=== PATIENT | male | born 1960 | race Caucasian/White ===

== ENCOUNTER → 2023-06-18 15:09 | Outpatient (REF) | payer BC, SELFPAY | LOC: HWRAD 15:09 | PROVIDERS: ATTENDING PHYSICIAN Family Medicine | DX: M79.671 Pain in right foot (principal) | CPT/HCPCS: 73630 ==

== ENCOUNTER 2024-05-01 00:37 | Inpatient (IN) | payer BC, SELFPAY ==
[2024-04-30] VITALS (9 sets, daily range): BP systolic 99–179; BP diastolic 65–77; BMI 27.6
--- NOTE | 2024-04-30 20:03 | ED.GENMED ---
History of Present Illness
General
Chief Complaint: Blood Pressure Problem
Source: patient
Exam Limitations: none
Time Seen by Provider: 04/30/24 19:43
Nursing documentation reviewed up to this point in time: agreed with
History of Present Illness
History of Present Illness:
64-year-old male with past medical history of congenital bicuspid aortic valve with aortic stenosis status post TEVAR (04/16/2024), hypertension, hyperlipidemia, prostate cancer status post prostatectomy, type B aortic dissection status post left
carotid subclavian transposition and thoracic duct ligation (04/15/2024) and abdominal dissection stent (04/16/2024); he presents to the emergency room today for evaluation of hypertension and chest discomfort. Patient had admission at [place]
[facility] for above procedures and was discharged 04/23/2024 after reportedly uneventful postoperative course. He returned the next day to the emergency room there and was admitted for observation after he had chest pain and
abdominal pain and CTA showed possible re-entry tear in abdominal aortic dissection flap. He was observed seen by cardiology had negative troponins and was ultimately discharged. He has been on carvedilol 25 mg twice daily for blood pressure
control and he reports compliance. He says that over the past 48 hours his blood pressures have been quite high. Today it was elevated all the way above 220 systolic. Hypertension has been associated with chest pains and back pain/abdominal pain.
Symptoms have improved since arrival in the ER but he was referred to the ER to be reassessed. At time of my assessment he reports some mild chest pain but denies any abdominal pain. He denies any shortness of breath. He denies feeling dizzy. He
denies any other complaints.
Past History
Past History
ED Past Medical History: CAD, Cancer (Prostate cancer), Other (Sigmoid diverticulitis, sigmoid colon resection January 2019), Other (Bicuspid aortic valve) and Other (Obstructive sleep apnea, pancreatitis, DJD)
ED Past Surgical History: Bowel resection (Sigmoid colon resection January 2019), Cardiac (cadiac cath 06/19), Cholecystectomy and Other (Prostatectomy)
Social History
Tobacco: Smoker
Alcohol: Occasional
Drug: None
Personal:
Living: with family
Employment: Employed
Family History
Family History: Early CAD
Review of Systems
Review of Systems
All Other Systems: ROS reviewed and negative except as documented in HPI and ROS
Constitutional: Denies fever or chills
Respiratory: Denies cough or trouble breathing
Cardiac: Reports chest pain; Denies palpitations
ABD/GI: Reports abdominal pain; Denies nausea or vomiting
: Denies flank pain
Musculoskeletal: Reports back pain; Denies neck pain
Neurological: Denies dizzy or headache
Phy Exam
Physical Exam
Physical Exam:
General: Awake, alert, oriented x3; no acute distress
Head: Normocephalic, atraumatic
Eyes: Conjunctiva normal, EOMI
Throat: Airway intact, handling secretions
Neck: Trachea midline, no JVD
Lungs: Clear to auscultation bilaterally, no wheezing, rales, rhonchi
Heart: Regular rate and rhythm, systolic murmur
Abd: Soft, non distended, nontender
Neuro: No gross deficits
Skin: no rash
Extremities: No edema in extremities, equal pulses in all extremities�specifically bilateral radial, PT and DP pulses palpable and symmetric
Scores
Heart Failure Risk
Heart Failure Risk Score: Not Applicable
Heart Score for Chest Pain Patients
STEMI patient?: Not applicable
Withdrawal Assessment of Alcohol
Withdrawal Assessment Completed?: Not applicable
Course
Orders/Labs/Results
Orders:
Orders
04/30/24 19:18
ECG [Electrocardiogram (*1)] Urgent
Reason for Study: Chest Pain
EKG- Treatment ONCE
04/30/24 20:01
CT Chest/abd/pelvis Angio W/wo Urgent
Comment: TEVAR, L carotid/subclavian transposition
Reason For Exam: chest pain, HTN s/p surgery (see comments)
04/30/24 20:10
Type+Screen Urgent
Complete Blood Count/With Diff Urgent
Comprehensive Metabolic Panel Urgent
PTT Urgent
Prothrombin Time Urgent
Troponin I Urgent
04/30/24 20:32
Nicardipine 40 mg/200 ml [Cardene] 40 mg in 200 ml IV NOW
Initial dose in mg/hr, then titrate:: 5
Titrate to keep:: SBP 120 - 140 mmHg
Titrate by mg/hr:: 2.5 mg/hr
Frequency of titrations (minutes):: 5-15 minutes
Maximum dose in mg/hr:: 15
Begin to taper infusion when:: Remained at goal for 2hrs
Taper by mg/hr:: 2.5 mg/hr
Frequency of taper (minutes) if patient maintains goal:: 15-30 minutes
Taper to off?: Yes
If infusion off & no longer maintaining goal:: Contact Provider
Abnormal Lab Results
04/30/24
20:10
RBC 2.72 L 10^6/uL
(4.70-6.10)
Hgb 8.2 L g/dL
(13.0-18.0)
Hct 25.9 L %
(39.0-52.0)
MCV 95.2 H fL
(80.0-94.0)
MCHC 31.7 L g/dL
(33.0-37.0)
Abs Immat Gran (auto) 0.1 H 10^3/uL
(0-0.05)
Absolute Neuts (auto) 7.0 H 10^3/uL
(1.4-6.5)
Absolute Monos (auto) 0.7 H 10^3/uL
(0.1-0.6)
Immature Gran % 0.6 H %
(0-0.5)
Neutrophils % 77.8 H %
(42.2-75.2)
Lymphocytes % 13.1 L %
(20.5-51.1)
PT 15.9 H Sec
(11.4-14.6)
APTT 38.3 H Sec
(23.4-35.0)
Sodium 132 L mmol/L
(135-145)
Glucose 104 H mg/dl
(70-99)
ALT 55 H U/L
(0-50)
Total Protein 5.9 L g/dl
(6.3-8.2)
Albumin 3.1 L g/dl
(3.5-5.0)
04/30/24 20:10
04/30/24 20:10
Vital Signs
Initial and Last Documented VS:
Initial Vital Signs
Temp Pulse Resp BP Pulse Ox
37.1 C 67 20 138/65 99
04/30/24 19:13 04/30/24 19:13 04/30/24 19:13 04/30/24 19:13 04/30/24 19:13
Last Documented Vital Signs
Temp Pulse Resp BP Pulse Ox
37.1 C 75 24 164/73 97
04/30/24 19:13 04/30/24 21:30 04/30/24 21:30 04/30/24 21:30 04/30/24 21:30
MDM/Problems Addressed
Differential Diagnosis Includes:
Chest pain and hypertension: Could be related to reentry tear/worsening dissection, acute AL, pneumothorax, musculoskeletal/postoperative pain
MDM/Problems Addressed:
64-year-old male with recent surgical history as described above presents to the ER for poorly controlled blood pressure and associated chest pains/abdominal and back pain. Symptoms have improved as has his blood pressure�he reports blood pressure
220 at home today's blood pressure is 138/65. Rest of vitals are also normal. Physical exam as above. Will place an IV check labs including a CBC and a CMP, coags, type and screen, troponin. Check stat EKG. Will check CTA of the
chest/abdomen/pelvis. Reassess after the above.
Patient's blood pressure up again now 174/74. Heart rate 60s. I think at this point he should started on a Cardene drip to regulate blood pressure in the short-term and I think he should be admitted pending CT to better manage his blood pressure
given his recent surgical history as he says regularly has been over 200 for the past few days despite full dose of Coreg.
Blood pressure improving now 160s over 70s. CTA discussed with radiology�at least based on outpatient read from [place] appears stable today although no actual images to review for comparison. He is chest pain and back pain free on clinical
reassessment. Will plan to admit for blood pressure management as he says he was instructed to maintain strict blood pressure less than 140 postop. Discussed case with hospitalist for admission.
Chronic conditions affecting care:
Hypertension, aortic dissection
*Radiology
Radiology exam reviewed: radiology read reviewed
*Pulse Oximetry
Patient hypoxic: no
*EKG
Interpreted by ED Provider?: Yes
Heart Rate: 66
Rate: normal
Rhythm: sinus
[place]: left axis deviation
QRS Pattern: left vent hypertrophy
Ischemia: no ischemia
*Critical Care Note
Total Time (30-74mins, 75-104mins- exclusive of procedures): Not Applicable
Data Reviewed
Review of Other/Old Records Reveals: Labs and Records (Reviewed external discharge summary from recent visit to [facility])
Source: patient, records and physician (Discussed with sexual health physician who referred to the ER)
ED Attending Note
-
Portions of this chart may have been created with voice recognition software.� Occasional wrong word or��sound alike� substitutions may have occurred due to the inherent limitations of voice recognition software.
Discharge Plan
Departure
Patient Disposition: Admit
Date of Disposition: 04/30/24
Time of Disposition: 22:38
Admit to doctor: [place]
Presentation/result/management discussed w/ accepting MD/DO: Hospitalist
Discharge Problem:
Hypertensive urgency, Chest pain
Prescriptions:
No Action
calcium polycarbophil [Fiber (calcium polycarbophil)] 625 MG tablet
625 mg PO DAILYPRN PRN (Reason: constipation)
alprostadil [Edex] 40 MCG/VIAL recon soln
40 mcg IC PRN PRN (Reason: erectile dysfunction)
valacyclovir 500 MG tablet
500 mg PO DAILY
mupirocin 1 APPLIC ointment
1 applic intranasal BID Qty: 1 0RF
Patient Comments:
pt did not do this at all
sennosides [senna] 1 TABLET tablet
2 tab PO BID 0RF
lidocaine [Aspercreme (lidocaine)] 1 PATCH adhesive patch,medicated
2 patch topical DAILY Qty: 14 0RF
Rx Instructions:
Over the counter. Remove nightly.
Apply to sides of left thigh. Do not place over incision.
aspirin 325 MG tablet
325 mg PO DAILY Qty: 28 0RF
Rx Instructions:
Take daily x4 weeks for blood clot prevention; then resume Aspirin 81 mg daily.
magnesium hydroxide 30 ML suspension
30 ml PO DAILY 0RF
docusate sodium 100 MG capsule
100 mg PO BID 0RF
gabapentin 100 MG capsule
200 mg PO TID Qty: 45 0RF
oxycodone 5 MG tablet
5 mg PO Q4HPRN PRN (Reason: moderate-severe pain) Qty: 30 0RF
Rx Instructions:
1 tab moderate pain or 2 if pain severe
Dx total joint replacement
ongoing therapy
acetaminophen [Pain Relief (acetaminophen)] 325 MG tablet
650 mg PO Q4HWA Qty: 30 0RF
Rx Instructions:
Do not exceed >4000 mg daily.
meloxicam 15 MG tablet
15 mg PO DAILY Qty: 30 0RF
Rx Instructions:
Take with food.
Do not take within 2 hours of Aspirin.
Referrals:
Gerry Lincoln MD [Family Provider] -
Interventions
Interventions:
*General Assessment Last Done: 04/30/24 19:13
ED- Cardiac Assessment Last Done: 04/30/24 20:18
ED- Neurological Assessment Last Done: 04/30/24 20:18
ED- Pulmonary Assessment Last Done: 04/30/24 20:18
Discharge Date and Time
Print Language: FRENCH
[2024-04-30 20:19] LABS: % Basophils 0.2 % (0-2); % Eosinophils 0.7 % (0-6); % Immature Granulocytes 0.6 % (0-0.5); % Lymphocytes 13.1 % (20.5-51.1); % Monocytes 7.6 % (1.7-9.3); % Neutrophils 77.8 % (42.2-75.2); Absolute Eosinophils 0.1 10^3/uL (0-0.7); Absolute Immature Granulocytes 0.1 10^3/uL (0-0.05); Absolute Lymphocytes 1.2 10^3/uL (1.2-3.4); Absolute Monocytes 0.7 10^3/uL (0.1-0.6); Hematocrit 25.9 % (39.0-52.0); Hemoglobin 8.2 g/dL (13.0-18.0); Mean Corp Hgb Conc. 31.7 g/dL (33.0-37.0); Mean Corpuscular Hgb 30.1 pg (27.0-31.0); Mean Corpuscular Volume 95.2 fL (80.0-94.0); Mean Platelet Volume 9.3 fL (7.4-10.4); Nucleated Red Blood Cells % 0 % (-); Platelet Count 224 10^3/uL (130-400); Red Blood Cell Count 2.72 10^6/uL (4.70-6.10); Red Cell Dist. Width 14.2 % (11.5-14.5)
[2024-04-30 20:32] LABS: INR 1.24; PT 15.9 Sec (11.4-14.6)
[2024-04-30 20:33] LABS: APTT 38.3 Sec (23.4-35.0)
[2024-04-30] MEDS: CARDENE 200 IV (20:38)
[2024-04-30 20:49] LABS: Troponin I 0.013 ng/ml
[2024-04-30 20:50] LABS: ALT (SGPT) 55 U/L (0-50); AST (SGOT) 32 U/L (17-59); Albumin 3.1 g/dl (3.5-5.0); Alkaline Phosphatase 82 U/L (38-126); Blood Urea Nitrogen 12 mg/dl (9-20); Calcium 8.6 mg/dl (8.4-10.2); Carbon Dioxide 23 mmol/L (22-30); Chloride 102 mmol/L (98-107); Estimated Creatinine Clearance 86 ml/min; Glucose 104 mg/dl (70-99); Sodium 132 mmol/L (135-145); Total Bilirubin 0.6 mg/dl (0.2-1.3); Total Protein 5.9 g/dl (6.3-8.2); eGFR > 60.00
[2024-05-01] VITALS (44 sets, daily range): BP systolic 110–175; BP diastolic 37–70
--- NOTE | 2024-05-01 00:07 | HPS.HSE ---
Family Physician
-
Family Physician: Gerry Lincoln
Chief Complaint
-
Elevated blood pressure
History of Present Illness
This is a 64-year-old male with past medical history of CAD status post stenting, peripheral vascular disease status post stenting, history of prostate cancer, presented to the emergency department with elevated blood pressure that was high as 200
systolic at home.
Patient reports that is status post surgery at [facility] for a type B dissection. Discharged on Coreg 25 mg twice daily. Patient reported that prior to that he was not on any antihypertensives. He is unable to tell me without he has been on
antihypertensives in the more distant past. He reported compliance with the Coreg. He checks his blood pressure regularly and reports that at night 8/high as 185. However today it went up to around 200 and he has been instructed to come to the
emergency department if that happens. He is to get blood pressure is less than 140 systolic.
In the emergency department he was initially hypertensive to 170 systolic. He was started on nicardipine drip.
His blood pressure was 1 147/90 with a pulse of 80, afebrile and satting 99% on room air. Troponin was 0.013. ECG showed normal sinus rhythm at a rate of 66. CBC shows hemoglobin of 8.2 and otherwise normal. Electrolytes were unremarkable with a
creatinine of 1.0. Potassium was 4.0.
CT dissection is negative for acute changes: Endovascular stent (TEVAR) seen extending from the aortic arch into the abdominal aorta. Homogeneous contrast opacification predominantly left-sided beyond the confines of the stent in the distal
thoracic region extending into the abdominal aorta suggesting the possibility of contrast opacification of the false lumen possibly the result of a re-entry tear of prior dissection. Unfortunately, no recent CTA studies outside of this facility are
available for comparison/assessment of any possible interval change.
Dissection of the distal abdominal aorta extending into the proximal left common iliac artery and throughout the right common iliac artery with aneurysmal dilatation of the right common iliac artery noted, similar in size to remote prior CT,
however, dissection was not seen on prior CT from 2019. Age of this dissection is unknown.
Bubble of air in the urinary bladder presumably the result of recent Anthony catheter/instrumentation. In the absence of such, fistula would be suspected.
Tiny left pleural effusion with left lower lobe subsegmental atelectasis.
Additional nonurgent findings, as detailed above.
Medical History
Past Medical History
Past Medical History: Reports Cancer (prostate ca) and Valvular Disease (bicuspid aortic valve)
Additional Past Medical History:
basilic vein thrombosis
Past Surgical History: Reports Bowel Resection, Cholecystectomy and Orthopedic (left hip replacement)
Social History
Tobacco: Former Smoker
Alcohol: Occasional
Drug: None
Personal: Single
Living: Alone
Employment: Employed
Family History
Family History: Not pertinent
Allergies / Home Medications
Allergies reflects when Allergies were last updated in [facility].
Home Medications with original date entered in [facility]
Allergy/Medication List:
Allergies
Allergy/AdvReac Type Severity Reaction Status Date / Time
morphine AdvReac Nausea / Verified 04/30/24 19:13
Vomiting
Home Medications
aspirin 81 mg tablet,delayed release 81 mg PO DAILY 04/30/24
atorvastatin 80 mg tablet 80 mg PO HS 04/30/24
carvedilol 25 mg tablet 25 mg PO BID 04/30/24
oxycodone 5 mg tablet 5 mg PO DAILYPRN PRN moderate-severe pain 04/30/24
Review of Systems
-
History Source: Patient
Constitutional: Reports No Symptoms
EENT: Reports No Symptoms
Respiratory: Reports No Symptoms
Cardiac: Reports Chest Pain
Abdomen/GI: Reports No Symptoms
: Reports No Symptoms
Musculoskeletal: Reports No Symptoms
Skin: Reports No Symptoms
Neurological: Reports No Symptoms
Endocrine: Reports No Symptoms
Hematologic/Lymphatic: Reports No Symptoms
Psych: Reports No Symptoms
Physical Exam
Vital Signs
Vital Signs
Temp Pulse Resp BP Pulse Ox
98.7 F 82 27 147/67 95
04/30/24 19:13 05/01/24 00:00 05/01/24 00:00 05/01/24 00:00 05/01/24 00:00
Physical Exam
General: Well Developed, Well Nourished, No Apparent Distress and Comfortable
HEENT: NormoCephalic, Anicteric, Moist mucous membranes and Atraumatic
Respiratory: Clear
Cardiac: S1/S2 and Regular Rhythm
Breast: Deferred by me
GI: Soft, Non Tender, Non Distended and Normal Bowel Sounds
Rectal: Deferred by Provider
Genito-urinary: Deferred by me
Musculoskeletal: No Clubbing and No Cyanosis
Skin: Warm
Neuro: AO x 3 and Nonfocal/grossly intact
Hematologic/Lymphatic: No Lymphadenopathy
Psych: Calm
Laboratory Results
-
04/30/24 20:10
04/30/24 20:10
Laboratory Results
PT 15.9 Sec (11.4-14.6) H 04/30/24 20:10
INR 1.24 04/30/24 20:10
APTT 38.3 Sec (23.4-35.0) H 04/30/24 20:10
Total Bilirubin 0.6 mg/dl (0.2-1.3) 04/30/24 20:10
AST 32 U/L (17-59) 04/30/24 20:10
ALT 55 U/L (0-50) H 04/30/24 20:10
Alkaline Phosphatase 82 U/L (38-126) 04/30/24 20:10
Troponin I 0.013 ng/ml 04/30/24 20:10
Data Reviewed
-
CT Scan: Report Reviewed by me
Medical Tests (Nuc Med, Echo, EKG etc): Image Personally Visualized and interpreted
Lab Data: Labs Reviewed by me
Old Records: Reviewed
Impression/Plan
-
IMPRESSION:
64 y.o recently status post surgery at [place] for type B aortic dissection and discharged on coreg with target SBP < 140 coming to ED with SBP > 180 and transient intermittent CP. Compliant with coreg 25 bid. ECG non-ischemic and otherwise
asymptomatic. Trop negative. CT scan shows post surgical changes without acute abnormalities. Started on nicardipine gtt.
PLAN:
1. Uncontrolled HTN
- admit to ICU
- continue nicardipine to target SBP < 140
- continue coreg 25 bid
- start valsartan 40mg
- consider nifedipine addition
- monitor K
- cardiology consultation
2. Dissection
- bp control as above
- continue aspirin and statin
3. SHIRLENE
- CPAP HS
DVT PPX - SCDs for now
Code status - full code
[2024-05-01] MEDS: DIOVAN 40 MG PO ×2 (00:48→09:59)
[2024-05-01] MEDS: CARDENE 200 IV ×4 (00:55→12:11)
--- NOTE | 2024-05-01 01:30 | RESPNOTE ---
pt states he will be fine without cpap for 1 night. Someone will bring his machine in for future use
[2024-05-01] MEDS: NITROSTAT (SUBLINGUAL) 0.4 MG SL (02:46)
[2024-05-01] MEDS: DILAUDID 0.5 MG IV ×2 (03:14→11:05)
[2024-05-01 03:18] LABS: Troponin I < 0.012 ng/ml
[2024-05-01 06:30] LABS: Troponin I 0.012 ng/ml
[2024-05-01 06:44] LABS: Blood Urea Nitrogen 10 mg/dl (9-20); Calcium 8.6 mg/dl (8.4-10.2); Carbon Dioxide 24 mmol/L (22-30); Chloride 103 mmol/L (98-107); Estimated Creatinine Clearance 86 ml/min; Glucose 111 mg/dl (70-99); Potassium 3.8 mmol/L (3.5-5.1); Sodium 136 mmol/L (135-145); eGFR > 60.00
--- NOTE | 2024-05-01 06:54 | CON.CAR ---
Consultation
Consultation Request
Date/Time Consultation Requested: April 30, 2024
Date/Time Consultation Performed: May 01, 2024
Requesting Provider: Hospitalist
Performing Provider: Cookie
Reason for Consultation: Chest pain
Medical History
-
Chief Complaint: Chest pain, hypertensive urgency
History of Present Illness:
Kirby Noel is a pleasant gentleman 64 years old who we have not seen since October 2022 in the office. He has been getting his recent cardiology and surgical care at [facility] after going [facility] the [facility] emergency room with chest and abdominal symptoms and was diagnosed with a type B aortic dissection. Importantly he has a history of bicuspid aortic valve. I do not have his complete records from [facility] but I
do have a discharge summary from April 28, 2024. He has had a recent complex medical history including tobacco use, congenital bicuspid aortic valve, hypertension, aortic stenosis, chronic pancreatitis, diverticulosis, DVT, HLD, prostate cancer
status post prostatectomy and most recently a type B aortic dissection with initial left carotid to subclavian transposition and thoracic duct ligation on April 15, 2024 at [facility] and TEVAR with abdominal dissection
stent on April 16. He was discharged uneventfully on April 23 from [facility] and then returned the following day with complaints of chest pain and shortness of breath. He had a creatinine of 1.7, troponin of 29 and
hemoglobin of 8 with a CTA obtained demonstrating postsurgical changes from the TEVAR and bypass and similar appearance of the distal aspect of the dissection flap extending into the iliac arteries. He had a similar-appearing fusiform aneurysm of
the right common iliac artery. He had contrast opacification of the false lumen likely secondary to reentry tear in the infrarenal abdominal aorta dissection flap. Cardiology was consulted while the patient was hospitalized and felt the pain to be
not likely cardiac in origin. There appears to be notes that he has follow-up arranged with cardiology at [facility]. He then called our cardiology on-call service last night and had complaints of chest pain with a blood pressure of 220/120. I
told him to immediately come to the emergency room which she did and he was placed on a Cardene drip. Current blood pressure is 130/60 and he is pain-free currently. He is on Coreg 25 mg twice daily and nifedipine 3 times daily plus spironolactone
as outpatient medications and current blood pressure medications in the emergency room are the Cardene drip, Coreg, and valsartan was added. He has a holosystolic murmur presumably from his bicuspid aortic valve. His creatinine has normalized.
Hemoglobin is noted to be 8.
Past Medical History
Past Surgical History: Other (Recent major vascular surgery)
Social History
Tobacco: Non-Smoker
Alcohol: None
Drug: None
Personal:
Living: With Family
Employment: Employed
Family History
Family History: Reviewed & Not Pertinent
Allergies / Home Medications
Allergy/AdvReac Type Severity Reaction Status Date / Time
morphine AdvReac Nausea / Verified 04/30/24 19:13
Vomiting
�Medication �Instructions �Recorded �Confirmed �Type
aspirin 81 mg tablet,delayed 81 mg PO DAILY 04/30/24 04/30/24 History
release
atorvastatin 80 mg tablet 80 mg PO HS 04/30/24 04/30/24 History
carvedilol 25 mg tablet 25 mg PO BID 04/30/24 04/30/24 History
oxycodone 5 mg tablet 5 mg PO DAILYPRN PRN 04/30/24 04/30/24 History
moderate-severe pain
Review of Systems
-
All other systems: Negative unless noted
Physical Exam
Vital Signs
Temp Pulse Resp BP Pulse Ox
98.7 F 65 4 140/65 93
04/30/24 19:13 05/01/24 06:30 05/01/24 06:45 05/01/24 06:45 05/01/24 06:45
Lab Results
04/30/24 20:10
05/01/24 05:58
Troponin I 0.012 ng/ml 05/01/24 05:58
Physical Exam
General: Well Developed and Well Nourished
HEENT: Normocephalic
Respiratory: Clear
Cardiac: S1/S2, Regular Rhythm and Murmur (2 out of 6 holosystolic murmur with mildly blunted S2)
Breast: Deferred by me
GI: Soft, Non Tender and Non Distended
Rectal: Deferred by Provider
Genito-urinary: Other (Deferred)
Musculoskeletal: No Clubbing and No Cyanosis
Skin: Warm, Dry and Rash
Neuro: Awake, Alert and Oriented
Hematologic/Lymphatic: No Lymphadenopathy
Psych: Calm
Impression / Plan
-
Impression:
Type B aortic dissection
Status post left carotid to subclavian transposition April 15 at [facility]
TEVAR and abdominal dissection stent April 16 at [facility]
Readmission for chest pain and positive troponin
Hypotension post surgery
Acute renal failure post surgery resolved
Ongoing iron deficiency anemia from blood loss
Hypertensive urgency reason for admission
Chest pain
Bicuspid aortic valve
Mixed hyperlipidemia
Aortic root 4.3 cm at 2022 echo
Recommendations:
He has received a bulk of his daytime care at [facility] and we have not seen him in the office in 2022
Agree with IV Cardene to maintain blood pressure ideally less than 120/80 given his recent dissection
At home he had hypertensive urgency with markedly elevated blood pressures and chest pain
Not unreasonable to check daily troponins x 2
Will repeat echocardiogram to assess his aortic root and bicuspid aortic valve
Currently appears relatively comfortable as we transition to increased p.o. medications
Agree with valsartan
Discussion with family who they would like to follow-up with in the long-term as the discharge summary indicates follow-up with cardiology at [facility]
Can consider vascular surgery opinion if he has ongoing abdominal or chest symptoms otherwise probably reasonable to have him follow-up with [facility] vascular surgery given the extent of their care over the month of April and as recently as 2 days
ago. The patient's told me that they are trying to reach out and connect with the [facility] team
We will follow with you
Data Reviewed
-
EKG: Tracing Personally Visualized and interpreted
Labs: Labs Reviewed by me
Old Records: Requested and Reviewed
--- NOTE | 2024-05-01 08:20 | CON.INTV ---
Consultation
Consultation Request
Date/Time Consultation Requested: 05/01/202449
Date/Time Consultation Performed: 05/01/2024809
Requesting Provider: Dr. Schafer
Performing Provider: Dr. Morris
Reason for Consultation: HTN crisis
Medical History
-
Chief Complaint: Chest/back discomfort with recent procedure done on aorta
History of Present Illness:
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
prostate cancer s/p surgery + XRT, diverticulosis, external hemorrhoids, chronic constipation and history of chest pain who presents with chest pain + back pain. He recently had surgery done for a type B dissection at [facility]. He was put on the
Coreg 25 mg BID upon discharge and was just discharged home 1 day prior to arrival. He says he has been compliant with the Coreg. At home he checks his BP and sometimes his SBP is as high as the 180s. He says prior to arrival his SBP went to
around 200 and that is why he came to the ER. In the ER his BP was initially 138/65, with heart rate 67, breathing at 20 breaths/min, and saturating 99% on room air. He was afebrile to 98.7 �F. Labs showed Hb 8.2, sodium 132, and troponin
negative at 0.013. A CTA chest, abdomen, pelvis with/without contrast was done showing a TEVAR from the aortic arch into the abdominal aorta showing possible contrast opacification of a false lumen which could be the result of a reentry tear of a
prior dissection. Also dissection of the distal abdominal aorta extending into the proximal left common iliac artery and throughout the right common iliac artery with aneurysmal dilatation of the right common iliac artery noted, similar in size to
prior CT in 2019, as per radiologist. Also a small left pleural effusion with left lower lobe subsegmental atelectasis. Patient's BP increased into the 170s and was started on Cardene drip. He was admitted to the ICU for further care and
Diabetes Manager services consulted for additional management/recommendations.
When I saw the patient, he was resting in bed in no acute distress. Currently on room air breathing comfortably. Denies chest pain or shortness of breath. Also denies MELVIN, nausea, abdominal pain, fevers or chills.
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
surgery + XRT (2009), left proximal humerus fracture due to fall (07/2009), external hemorrhoids, diverticulosis, history of acute pancreatitis (01/2009), chronic constipation, history of chest pain, keratoacanthoma
PSHx: Laparoscopic cholecystectomy with cholangiogram, repair of periumbilical incisional hernia with mesh, robotic sigmoid colectomy with intracorporeal anastomosis, left hip replacement
Past Medical History
Past Medical History: Other (Above as per HPI)
Past Surgical History: Other (Above as per HPI)
Social History
Tobacco: Former Smoker
Alcohol: Occasional
Drug: None
Family History
Family History: CAD (Father: CABG x 4), Cancer (Maternal uncle: Bladder + lung cancer), Diabetes (Father) and Other (Mother: Gallbladder disease + colonic polyps; Brother: Colonic polyps)
Allergies / Home Medications
Allergies
Allergy/AdvReac Type Severity Reaction Status Date / Time
morphine AdvReac Nausea / Verified 04/30/24 19:13
Vomiting
Home Medications
�Medication �Instructions �Recorded �Confirmed �Last Taken �Type
aspirin 81 mg tablet,delayed 81 mg PO DAILY 04/30/24 04/30/24 Unknown History
release
atorvastatin 80 mg tablet 80 mg PO HS 04/30/24 04/30/24 Unknown History
carvedilol 25 mg tablet 25 mg PO BID 04/30/24 04/30/24 Unknown History
oxycodone 5 mg tablet 5 mg PO DAILYPRN PRN 04/30/24 04/30/24 Unknown History
moderate-severe pain
Review of Systems
-
History Source: Patient
All other systems: Negative unless noted
Vitals / Labs / Diagnostic Testing
Vital Signs
Temp Pulse Resp BP Pulse Ox
98.7 F 65 4 140/65 93
04/30/24 19:13 05/01/24 06:30 05/01/24 06:45 05/01/24 06:45 05/01/24 06:45
Lab Data
04/30/24 20:10
05/01/24 05:58
Laboratory Results
04/30/24
20:10
PT 15.9 H
INR 1.24
APTT 38.3 H
Diagnostic Testing:
Physical Exam
-
HEENT: Normocephalic and Anicteric
Cardiovascular: S1/S2, Murmur (MICHELE heard diffusely across precordium, grade IV/) and Peripheral Edema (negative)
Respiratory: Clear, Wheeze (negative), Rales (negative), Rhonchi (negative) and Non-Labored Respirations
GI: Soft, Non Distended, Non Tender and Normal Bowel Sounds
Neurology: Awake, Alert and Tremors (negative)
Skin: Warm and Dry
General: Respiratory Distress (negative), Comfortable, Fever (negative) and Chills (negative)
Assessment
-
Assessment: 64-year-old male former tobacco smoker with a past medical history of congenital aortic valve insufficiency, history of bradycardia, aortic stenosis, bicuspid aortic valve, hyperlipidemia, incomplete occlusive vein thrombosis of basilic
vein, prostate cancer s/p surgery + XRT, diverticulosis, external hemorrhoids, chronic constipation and history of chest pain who presents with chest pain + back pain. He recently had surgery done for a type B dissection at [facility]. He was put
on the Coreg 25 mg BID upon discharge and was just discharged home 1 day prior to arrival. He says he has been compliant with the Coreg. At home he checks his BP and sometimes his SBP is as high as the 180s. He says prior to arrival his SBP went
to around 200 and that is why he came to the ER. In the ER his BP was initially 138/65, with heart rate 67, breathing at 20 breaths/min, and saturating 99% on room air. He was afebrile to 98.7 �F. Labs showed Hb 8.2, sodium 132, and troponin
negative at 0.013. A CTA chest, abdomen, pelvis with/without contrast was done showing a TEVAR from the aortic arch into the abdominal aorta showing possible contrast opacification of a false lumen which could be the result of a reentry tear of a
prior dissection. Also dissection of the distal abdominal aorta extending into the proximal left common iliac artery and throughout the right common iliac artery with aneurysmal dilatation of the right common iliac artery noted, similar in size to
prior CT in 2019, as per radiologist. Also a small left pleural effusion with left lower lobe subsegmental atelectasis. Patient's BP increased into the 170s and was started on Cardene drip. He was admitted to the ICU for further care and
Diabetes Manager services consulted for additional management/recommendations.
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
prostate cancer s/p surgery + XRT (2009), left proximal humerus fracture due to fall (07/2009), external hemorrhoids, diverticulosis, history of acute pancreatitis (01/2009), chronic constipation, history of chest pain, keratoacanthoma
Impression:
#Hypertensive crisis requiring Cardene drip
#Anemia
#Hyponatremia
#Mild transaminitis with ALT 55
#Type B aortic dissection s/p EVAR at [facility]
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
#History of TEVAR and abdominal dissection stent at [facility]
#Bicuspid aortic valve
Plan:
- Continue with Cardene drip and lower SBP by 25% for the first 24 hours, and then can reduce BP further at that time to goal <140/90
- Cardiology consulted and recommendations appreciated
- He was given Coreg + valsartan this AM with good BP response and Cardene drip was able to be stopped; low threshold to resume if SBP rises >180�200 again and persists despite prn meds
- Would give prn labetalol if BP rises again with SBP >180, however hold labetalol if HR <70 and notify provider
- Maintain SpO2 >90-94% with supplemental O2 if needed � currently on room air breathing comfortably
- Maintain MAP>65
- Replete electrolytes with K>4, Mg>2
- Maintain euglycemia with goal BG 140-180
- Trend H/H and transfuse if needed to keep Hb>7g/dL; keep plt>20k, unless there is concern for bleeding then keep plt>50k
- prn nebulized bronchodilators - not currently bronchospastic
- Incentive spirometer encouraged 10x per hour for at least 4 hrs a day
- DVT ppx -would start chemical prophylaxis; use SCDs for now
If patient remains off Cardene drip for >4 to 6 hours then he can be downgraded safely to telemetry. Once downgraded then generation engineering technologist/pulmonary services will sign off at that time. Please call back with any questions or concerns.
Critical care statement: A total of 40 minutes of critical care time was provided for this patient today. This includes management of unstable vital signs, evaluation of the patient at bedside, reviewing the patient's pertinent medical records
including radiographs, microbiology, laboratory evaluations, and discussion with primary team, consultants, pharmacy, nutrition, physical therapy, case management, charge nurse, critical care nursing, and respiratory therapy.
Data:
CTA chest/abdomen/pelvis w/wo 04/30/2024:
Endovascular stent (TEVAR) seen extending from the aortic arch into the abdominal aorta. Homogeneous contrast opacification predominantly left-sided beyond the confines of the stent in the distal thoracic region extending into the abdominal aorta
suggesting the possibility of contrast opacification of the false lumen possibly the result of a re-entry tear of prior dissection. Unfortunately, no recent CTA studies outside of this facility are available for comparison/assessment of any possible
interval change.
Dissection of the distal abdominal aorta extending into the proximal left common iliac artery and throughout the right common iliac artery with aneurysmal dilatation of the right common iliac artery noted, similar in size to remote prior CT,
however, dissection was not seen on prior CT from 2019. Age of this dissection is unknown.
Bubble of air in the urinary bladder presumably the result of recent Anthony catheter/instrumentation. In the absence of such, fistula would be suspected.
Tiny left pleural effusion with left lower lobe subsegmental atelectasis.
[2024-05-01] MEDS: COREG 25 MG PO ×2 (09:02→21:51)
[2024-05-01] MEDS: ASPIR LOW (ENTERIC COATED) 81 MG PO (09:02)
[2024-05-01 10:42] LABS: Glycohemoglobin (HgbA1c) 5.7 % (4.0-5.6)
--- NOTE | 2024-05-01 14:04 | PTCARENOTE ---
cardene gtt tapered to off per protocol. md [email or web address]. nsr
--- NOTE | 2024-05-01 16:17 | W.PN.HOSP.TC ---
Addendum entered and electronically signed by Kamala Coates MD 05/01/24 18:15:
I saw and evaluated the patient independently. I reviewed the resident�s note and agree with findings and plan as documented by Dr. Sy.
GENERAL: well developed, well nourished, male in no apparent distress
HEENT: NC/AT
HEART: regular rate and rhythm, +S1, +S2
LUNGS : clear to auscultation bilaterally
ABDOM: soft, nontender, nondistended, + bowel sounds
EXT: no cyanosis, clubbing, or edema
NEUROLOGIC: grossly intact but slow to respond
Hypertensive urgency--in ICU in cardene drip--now weaned off, downgrade to tele--hx of type B aortic dissection with stent--despite chest pain, trop negative--apprec cards--ECHO pending--cont carvedilol, valsartan--cards recommends blood pressure be
maintained ideally less than 120/80 given his recent dissection
type B aortic dissection with recent stent--done at [facility] (TEVAR)--cont asa--ECHO pending--await vascular input
Anemia--unclear if chronic disease or from blood loss from recent surgery at [facility] --HGB 8.2
Hyponatremia--follow sodium
Obstructive sleep apnea-- cont CPAP machine
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
Code status-- full code
DVT proph
Original Note:
Today's Communication/Plan
-
Continue IV Cardene and make sure that systolic blood pressure is less than 120. Valsartan 40 mg p.o. daily given. Nitroglycerin 0.5 mg as needed. Hydromorphone 0.5 mg IV every 4 hours as needed for pain.
Assessment / Plan
Assessment / Plan
HPI: The patient is a 64-year-old male who presented to the emergency department for evaluation of hypertension and chest discomfort. He has a past medical history of congenital bicuspid aortic valve with aortic stenosis s/p TAVR on 04/16/2024,
hypertension, hyperlipidemia, prostate cancer s/p prostatectomy, type B aortic dissection s/p left carotid subclavian transposition and thoracic duct ligation on 04/15/2024, and abdominal dissection stent on 04/16/2024. Prior to his presentation to
the emergency department he had been admitted to [facility] [place] for the previously mentioned procedures and was discharged on 04/23/2024 after reportedly an uneventful postoperative course. He returned the next day after his discharge
to the emergency room and was admitted for observation after he had chest pain and abdominal pain and a abdominal CT showed possible reentry tear in the abdominal aortic dissection flap. Cardiology was consulted at [facility] [place] while the patient was
hospitalized and by their assessment they believe the patient's pain was not likely cardiac in origin. He had a follow-up appointment arranged with [facility] cardiology prior to his discharge. Patient mentions numerous stressors in his life
including his immense work ethic, separation from his , and that he worries about his daughter. He was observed while he was there and seen by cardiology and was found to have negative troponins. He was ultimately discharged on carvedilol 25
mg p.o. twice daily for blood pressure control and he reported compliance. He stated that over the past 48 hours prior to his presentation his blood pressure had been high. When he measured it at home he stated that it was elevated up to 220
systolic. This high blood pressure was associated with chest pain, back pain, and abdominal pain. By the time he reached the emergency department his symptoms improved. On evaluation in the emergency department he reported some mild chest pain
but denied any abdominal pain. He did not have any shortness of breath nor was he feeling dizzy. In the emergency department his blood pressure reached 172/60, respirations were 27, pulse remained lower than 100, and body temperature and oxygen
saturation were within normal limits. Patient's hematologic lab work was unremarkable and his chemistry was unremarkable as well. EKG was unremarkable. CT scan showed postsurgical changes without acute abnormalities. Patient was started on
nicardipine gtt. patient was admitted to [facility] for uncontrolled hypertension.
Assessment/Plan:
-Hypertensive crisis: Unresolved
At home the patient had markedly elevated blood pressures with a systolic greater than 220 and chest pain
Patient has a type B aortic dissection
Patient admitted to the ICU
Nicardipine drip initiated with goal systolic blood pressure <120
Continue carvedilol 25 mg p.o. twice daily
Monitoring potassium
Check trops
Will conduct a repeat echocardiogram to check his aortic root and bicuspid aortic valve
Appreciate cardiology recommendations -they recommend that the patient's blood pressure be maintained ideally less than 120/80 given his recent dissection. They also believe that it would be ortega for him to follow-up with [facility] vascular
surgery given the extent of their care over the past month in regards to his treatment.
Valsartan 40 mg p.o. daily added
Nitroglycerin 0.4 mg as needed added
-Type B aortic dissection: Monitoring
S/p EVAR at [facility]
Systolic blood pressure should be less than 120
Hydromorphone 0.5 mg IV every 4 hours as needed
Repeat echocardiogram ordered
Continue aspirin
-Anemia: Monitoring
RBCs on 04/30/2024 are 2.72, hemoglobin is 8.2, hematocrit 25.9
Will continue to monitor
-Hyponatremia: Monitoring
Patient had a sodium of 132 on admission.
Patient's sodium is 136 on 05/01/2024�within normal limits
-Obstructive sleep apnea: Monitoring
Patient has a CPAP machine at home and family will bring it
-History of left carotid to subclavian transposition
-History of TEVAR and abdominal dissection stent
-Bicuspid aortic valve
CODE STATUS: FULL CODE
DVT Prophylaxis: SCDs
Imaging:
Procedures:
Anticipated Discharge: 24 - 48 hours
Subjective/Interval History
-
Date of Service: May 01, 2024
Met with patient at the bedside. He is anxious and visibly tired. He is slow to respond at times and fatigued. He expresses worries about his ability to resume his daily life. Says that he feels weak, I spoke to the patient at length about
physical therapy and Occupational Therapy services offered at the hospital and that he may be connected to them prior to discharge.
Objective Data
-
Labs:
Laboratory Results
05/01/24
05:58
Sodium 136
Potassium 3.8
Chloride 103
Carbon Dioxide 24
BUN 10
Creatinine 1.0
Glucose 111 H
Calcium 8.6
Vital Signs:
Vital Signs
Temp Pulse Resp BP Pulse Ox
98.2 F 62 18 127/58 97
05/01/24 10:56 05/01/24 14:00 05/01/24 14:00 05/01/24 14:00 05/01/24 14:00
Review of Systems
-
History Source: Patient
Constitutional: Reports Fatigue and Weakness
EENT: Reports No Symptoms Reported
Respiratory: Reports No Symptoms
Cardiac: Reports No Symptoms
Abdomen/GI: Reports No Symptoms
Breast: Reports No Symptoms
Genitourinary: Reports No Symptoms
Musculoskeletal: Reports No Symptoms
Skin: Reports No Symptoms
Neuro: Reports No Symptoms
Endocrine: Reports No Symptoms
Hematologic / Lymphatic: Reports No Symptoms
Psych: Reports Anxious
Physical Exam
-
General: Well Developed and Well Nourished
HEENT: Normocephalic, Atraumatic and Moist Mucous Membranes
Respiratory: Clear to Auscultation
Cardiac: S1/S2 and Murmur (Holosystolic murmur)
Breast: Deferred by me
GI: Soft, Nontender, Nondistended and Normal Bowel Sounds
Rectal: Deferred by Provider
Genito-urinary: Deferred by me
Musculoskeletal: No Clubbing, No Cyanosis and No Edema
Skin: Warm and Dry; Negative Rash or Ulcers
Neuro: Awake, Alert, Oriented and AO x 3
Psych: Calm
[2024-05-01] MEDS: LIPITOR 80 MG PO (21:51)
[2024-05-01] MEDS: APRESOLINE 10 MG IV (22:14)
[2024-05-01] MEDS: NORVASC 5 MG PO (22:14)
[2024-05-02] VITALS (7 sets, daily range): BP systolic 114–157; BP diastolic 50–76
[2024-05-02] MEDS: DILAUDID 0.5 MG IV ×3 (04:23→20:58)
[2024-05-02] MEDS: APRESOLINE 10 MG IV ×2 (04:29→18:15)
--- NOTE | 2024-05-02 04:41 | W.PN.UPDATE ---
Update Note
Progress Note Update
Reviewed patient bp readings with railroad hand and in keeping with bp 120/70 or less added amlodipine 5 mg daily and hydralazine 20 mg IV prn. One episode of CP this morning and dilaudid IV given.
--- NOTE | 2024-05-02 07:30 | W.PN.HOSP.TC ---
Addendum entered and electronically signed by Kamala Coates MD 05/02/24 13:58:
I saw and evaluated the patient independently. I reviewed the resident�s note and agree with findings and plan as documented by Dr. Sy.
GENERAL: well developed, well nourished, male in no apparent distress
HEENT: NC/AT
HEART: regular rate and rhythm, +S1, +S2
LUNGS : clear to auscultation bilaterally
ABDOM: soft, nontender, nondistended, + bowel sounds
EXT: no cyanosis, clubbing, or edema
NEUROLOGIC: grossly intact but slow to respond
Hypertensive urgency--no end organ damage--needed ICU cardene drip---hx of type B aortic dissection with stent--despite chest pain, trop negative--apprec cards--ECHO pending--cont carvedilol (increase to 37.5mg in AM and 25 mg in PM), add
amlodipine 5 mg BID, cont valsartan--cards recommends blood pressure be maintained <120/80, HR < 60 given his recent dissection
type B aortic dissection with recent stent--done at [facility] ([facility])--cont asa--ECHO pending--apprec vascular input
Anemia--unclear if chronic disease or from blood loss from recent surgery at [facility] --HGB 8.2 now increased to 9.5
Hyponatremia--follow sodium
Obstructive sleep apnea-- cont CPAP machine
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
Code status-- full code
DVT proph
Original Note:
Today's Communication/Plan
-
Patient's amlodipine 5 mg has been adjusted so that it is now twice daily. Patient's morning Coreg has been adjusted to 37.5 mg in the morning and evening dose will be 25 mg. MiraLAX has been added for constipation.
Assessment / Plan
Assessment / Plan
HPI: The patient is a 64-year-old male who presented to the emergency department for evaluation of hypertension and chest discomfort. He has a past medical history of congenital bicuspid aortic valve with aortic stenosis s/p TAVR on 04/16/2024,
hypertension, hyperlipidemia, prostate cancer s/p prostatectomy, type B aortic dissection s/p left carotid subclavian transposition and thoracic duct ligation on 04/15/2024, and abdominal dissection stent on 04/16/2024. Prior to his presentation to
the emergency department he had been admitted to [facility] for the previously mentioned procedures and was discharged on 04/23/2024 after reportedly an uneventful postoperative course. He returned the next day after his discharge
to the emergency room and was admitted for observation after he had chest pain and abdominal pain and a abdominal CT showed possible reentry tear in the abdominal aortic dissection flap. Cardiology was consulted at [facility] while the patient was
hospitalized and by their assessment they believe the patient's pain was not likely cardiac in origin. He had a follow-up appointment arranged with [facility] cardiology prior to his discharge. Patient mentions numerous stressors in his life
including his immense work ethic, separation from his , and that he worries about his daughter. He was observed while he was there and seen by cardiology and was found to have negative troponins. He was ultimately discharged on carvedilol 25
mg p.o. twice daily for blood pressure control and he reported compliance. He stated that over the past 48 hours prior to his presentation his blood pressure had been high. When he measured it at home he stated that it was elevated up to 220
systolic. This high blood pressure was associated with chest pain, back pain, and abdominal pain. By the time he reached the emergency department his symptoms improved. On evaluation in the emergency department he reported some mild chest pain
but denied any abdominal pain. He did not have any shortness of breath nor was he feeling dizzy. In the emergency department his blood pressure reached 172/60, respirations were 27, pulse remained lower than 100, and body temperature and oxygen
saturation were within normal limits. Patient's hematologic lab work was unremarkable and his chemistry was unremarkable as well. EKG was unremarkable. CT scan showed postsurgical changes without acute abnormalities. Patient was started on
nicardipine gtt. patient was admitted to [facility] for uncontrolled hypertension.
Assessment/Plan:
-Hypertensive crisis: Unresolved
At home the patient had markedly elevated blood pressures with a systolic greater than 220 and chest pain
Patient has a type B aortic dissection
Patient admitted to the ICU
Nicardipine drip initiated with goal systolic blood pressure <120
Continue carvedilol 25 mg p.o. twice daily
Monitoring potassium
Check trops
Will conduct a repeat echocardiogram to check his aortic root and bicuspid aortic valve
Appreciate cardiology recommendations -they recommend that the patient's blood pressure be maintained ideally less than 120/80 given his recent dissection. They also believe that it would be ortega for him to follow-up with [facility] vascular
surgery given the extent of their care over the past month in regards to his treatment. -Coreg has been adjusted so that morning dose is 37.5 mg in evening doses 25 mg.
Valsartan 40 mg p.o. daily added
Nitroglycerin 0.4 mg as needed added
Amlodipine has been adjusted to 5 mg twice daily.
-Type B aortic dissection: Monitoring
S/p EVAR at [facility]
Systolic blood pressure should be less than 120
Hydromorphone 0.5 mg IV every 4 hours as needed
Repeat echocardiogram ordered
Continue aspirin
-Anemia: Monitoring
RBCs on 04/30/2024 are 2.72, hemoglobin is 8.2, hematocrit 25.9
Will continue to monitor
-Hyponatremia: Monitoring
Patient had a sodium of 132 on admission.
Patient's sodium is 136 on 05/01/2024�within normal limits
-Obstructive sleep apnea: Monitoring
Patient has a CPAP machine at home and family will bring it
-Constipation:
MiraLAX added
-History of left carotid to subclavian transposition
-History of TEVAR and abdominal dissection stent
-Bicuspid aortic valve
CODE STATUS: FULL CODE
DVT Prophylaxis: SCDs
Imaging:
CT angio of the chest/abdomen/pelvis:
FINDINGS: CTA: Endovascular stenting seen extending from the aortic arch into the abdominal aorta distal to the renal arteries. There is contrast opacification of the stent as well as contrast opacification of the descending thoracic aorta and
abdominal aorta left lateral and predominantly posterior to the stent predominantly homogeneous in appearance with some additional unopacified appearance of the excluded anterior abdominal aorta. There is dissection of the distal abdominal aorta
extending into the proximal left common iliac artery and throughout the right common iliac artery with mild aneurysmal dilatation of the right common iliac artery especially distally measuring up to 2.6-2.7 cm, aneurysm similar size to prior CT 2019
although no dissection on prior CT.
CHEST: The trachea and central airways are patent. There is no focal parenchymal consolidation, pneumothorax, right pleural effusion or pericardial effusion. There is a tiny left pleural effusion without contrast opacification with accompanying
left lower lobe subsegmental atelectasis. There is no significant hilar, mediastinal or axillary lymphadenopathy. The heart is mildly enlarged.
ABDOMEN: There is prominent motion artifact. The gallbladder is apparently surgically absent. No gross findings are seen to suggest biliary tract dilatation. No gross focal abnormality of the pancreas, spleen, adrenal glands or kidneys are seen
although limited by motion. Evaluation of the intestinal tract is markedly limited without oral contrast, without intestinal obstruction or free air. Sigmoid anastomosis is noted. There is no retroperitoneal lymphadenopathy.
PELVIS: Bubble of air in the unopacified urinary bladder presumably the result of recent instrumentation. The hardening artifact from left hip arthroplasty otherwise significantly obscures visualization of the soft tissues of the true pelvis. The
prostate gland is likely surgically absent.
Procedures: N/A
Anticipated Discharge: 24 - 48 hours
Subjective/Interval History
-
Date of Service: May 02, 2024
Met with the patient at the bedside. He stated that he had an increase in blood pressure last night and was anxious about that. I discussed treatment options with the patient and encouraged him have hope about his future.
Objective Data
-
Labs:
Laboratory Results
05/02/24 05/02/24
07:17 07:57
WBC 6.3
Hgb 9.5 L
Hct 28.2 L
Plt Count 256
Sodium 136
Potassium 3.9
Chloride 102
Carbon Dioxide 25
BUN 12
Creatinine 1.0
Glucose 103 H
Calcium 9.2
Vital Signs:
Vital Signs
Temp Pulse Resp BP Pulse Ox
98.2 F 65 21 114/50 97
05/02/24 08:36 05/02/24 08:36 05/02/24 08:36 05/02/24 08:36 05/02/24 08:36
Review of Systems
-
History Source: Patient
All other systems: Reviewed and negative
EENT: Reports No Symptoms Reported
Respiratory: Reports No Symptoms
Cardiac: Reports Chest Pain (Last night -not presently)
Abdomen/GI: Reports No Symptoms
Breast: Reports No Symptoms
Genitourinary: Reports No Symptoms
Musculoskeletal: Reports No Symptoms
Skin: Reports No Symptoms
Neuro: Reports No Symptoms
Endocrine: Reports No Symptoms
Psych: Reports Anxious
Physical Exam
-
General: Well Developed, Well Nourished, No Apparent Distress and Comfortable
HEENT: Normocephalic
Respiratory: Clear to Auscultation
Cardiac: S1/S2 and Murmur; Negative Calf Tenderness or JVD
Breast: Deferred by me
GI: Soft, Nontender, Nondistended and Normal Bowel Sounds
Rectal: Deferred by Provider
Genito-urinary: Deferred by me
Musculoskeletal: No Clubbing, No Cyanosis and No Edema
Skin: Warm and Dry; Negative Rash, Ulcers or Lesions
Neuro: Awake, Alert, Oriented and AO x 3
Psych: Calm
[2024-05-02] MEDS: COREG 25 MG PO ×2 (07:48→20:56)
[2024-05-02] MEDS: ASPIR LOW (ENTERIC COATED) 81 MG PO (07:48)
[2024-05-02] MEDS: NORVASC 5 MG PO ×2 (07:48→20:57)
[2024-05-02] MEDS: DIOVAN 40 MG PO (07:48)
[2024-05-02 08:02] LABS: Hematocrit 28.2 % (39.0-52.0); Hemoglobin 9.5 g/dL (13.0-18.0); Mean Corp Hgb Conc. 33.7 g/dL (33.0-37.0); Mean Corpuscular Hgb 30.3 pg (27.0-31.0); Mean Corpuscular Volume 89.8 fL (80.0-94.0); Mean Platelet Volume 9.3 fL (7.4-10.4); Platelet Count 256 10^3/uL (130-400); Red Blood Cell Count 3.14 10^6/uL (4.70-6.10); Red Cell Dist. Width 13.9 % (11.5-14.5); White Blood Cell Count 6.3 10^3/uL (4.8-10.8)
[2024-05-02 08:20] LABS: Blood Urea Nitrogen 12 mg/dl (9-20); Calcium 9.2 mg/dl (8.4-10.2); Carbon Dioxide 25 mmol/L (22-30); Chloride 102 mmol/L (98-107); Estimated Creatinine Clearance 86 ml/min; Glucose 103 mg/dl (70-99); Magnesium 1.9 mg/dl (1.6-2.3); Phosphorus 3.6 mg/dl (2.5-4.5); Potassium 3.9 mmol/L (3.5-5.1); Sodium 136 mmol/L (135-145); eGFR > 60.00
--- NOTE | 2024-05-02 10:48 | CON.VAS ---
Consultation
Consultation Request
Date/Time Consultation Performed: 05/02/2024
Performing Provider: Andreas
Reason for Consultation: Type B dissection
Medical History
-
Chief Complaint: Chest pain
History of Present Illness:
Recent type B dissection managed at [facility].
04/15/2024 - L carotid subclavian transposition
04/16/2024 - TEVAR
Readmitted 04/24/2024 - 04/28/2024 for poorly controlled HTN
Presents with SBP 220 and chest pain to
Personally reviewed CT with TEVAR/dissection stent in place. No active extrav. perfusion of mesenteric branch vessels. Perfusion into femorals. 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
Past Medical History
Past Medical History: Other (HTN, OA, DLP, Biscuspid AV, CAD, SHIRLENE, IBS, ETOH abuse, , Prostate CA)
Family History
Family History: Reviewed & Not Pertinent
Allergies / Home Medications
Allergy/AdvReac Type Severity Reaction Status Date / Time
morphine AdvReac Nausea / Verified 04/30/24 19:13
Vomiting
�Medication �Instructions �Recorded �Confirmed �Type
aspirin 81 mg tablet,delayed 81 mg PO DAILY 04/30/24 04/30/24 History
release
atorvastatin 80 mg tablet 80 mg PO HS 04/30/24 04/30/24 History
carvedilol 25 mg tablet 25 mg PO BID 04/30/24 04/30/24 History
oxycodone 5 mg tablet 5 mg PO DAILYPRN PRN 04/30/24 04/30/24 History
moderate-severe pain
Review of Systems
-
History Source: Patient
All other systems: Negative unless noted
Physical Exam
Vital Signs
Temp Pulse Resp BP Pulse Ox
98.2 F 65 21 114/50 97
05/02/24 08:36 05/02/24 08:36 05/02/24 08:36 05/02/24 08:36 05/02/24 08:36
Lab Results
05/02/24 07:57
05/02/24 07:17
Troponin I 0.012 ng/ml 05/01/24 05:58
Physical Exam
General: Well Developed and Well Nourished
HEENT: Normocephalic and Anicteric
Respiratory: Clear
GI: Soft and Non Tender
Skin: Warm and Dry
Neuro: AO x 3
Pulses: Bilateral Femoral: +2 and Bilateral Dorsalis Pedis: +2
Assessment / Plan
-
64M with Repaired type B dissection at [facility] 04/15, 04/16/2024
No signs of malperfusion
- Strict Target SBP<120, HR <60
- Monitor for malperfusion
- follow up at [facility]
Data Reviewed
-
CT Scan: Image Personally Visualized and interpreted
Labs: Labs Reviewed by me
--- NOTE | 2024-05-02 11:28 | W.PN.CARDCBS ---
Today's Communication / Plan
-
Increase Coreg
Valsartan
Given multiple hospitalizations, hypotension and hypertension a few extra days of inpatient blood pressure stability would be desired prior to discharge
Impression / Plan
-
Impression:
Type B aortic dissection
Status post left carotid to subclavian transposition April 15 at [facility]
TEVAR and abdominal dissection stent April 16 at [facility]
Readmission for chest pain and positive troponin
Hypotension post surgery
Acute renal failure post surgery resolved
Ongoing iron deficiency anemia from blood loss
Hypertensive urgency reason for admission
Chest pain
Bicuspid aortic valve
Mixed hyperlipidemia
Aortic root 4.3 cm at 2022 echo
Recommendations:
He has received a bulk of his daytime care at [facility] and we have not seen him in the office in 2022
Up titration of Coreg for improved blood pressure
At home he had hypertensive urgency with markedly elevated blood pressures and chest pain
Will repeat echocardiogram to assess his aortic root and bicuspid aortic valve
Currently appears relatively comfortable as we transition to increased p.o. medications. Some of his chest symptoms appear chronic and I do not think he is actively extending the dissection
Agree with valsartan
Discussion with family who they would like to follow-up with in the long-term as the discharge summary indicates follow-up with cardiology at [facility]
Appreciate vascular surgery input and internal medicine input
We will follow with you
Progress Note - Pickle Processor
Subjective
Date of Service: May 02, 2024
Improved chest symptoms
Objective
Labs:
05/02/24 07:57
05/02/24 07:17
Labs
Hgb 9.5 g/dL (13.0-18.0) L 05/02/24 07:57
Hct 28.2 % (39.0-52.0) L 05/02/24 07:57
Plt Count 256 10^3/uL (130-400) 05/02/24 07:57
PT 15.9 Sec (11.4-14.6) H 04/30/24 20:10
INR 1.24 04/30/24 20:10
APTT 38.3 Sec (23.4-35.0) H 04/30/24 20:10
Sodium 136 mmol/L (135-145) 05/02/24 07:17
Potassium 3.9 mmol/L (3.5-5.1) 05/02/24 07:17
BUN 12 mg/dl (9-20) 05/02/24 07:17
Creatinine 1.0 mg/dL (0.7-1.3) 05/02/24 07:17
Glucose 103 mg/dl (70-99) H 05/02/24 07:17
Troponins
04/30/24 05/01/24 05/01/24
20:10 02:44 05:58
Troponin I 0.013 < 0.012 0.012
Vital Signs and I&O:
Vital Signs
Temp Pulse Resp BP Pulse Ox
98.2 F 65 21 114/50 97
05/02/24 08:36 05/02/24 08:36 05/02/24 08:36 05/02/24 08:36 05/02/24 08:36
Vital Signs
Temp Pulse Resp BP Pulse Ox
98.2 F 65 21 114/50 97
05/02/24 08:36 05/02/24 08:36 05/02/24 08:36 05/02/24 08:36 05/02/24 08:36
Physical Exam
Physical Exam
����Physical Exam
���������������������General:��no apparent distress, not acutely ill
���������������������������Neck:��supple. no meningeal signs. normal psoterior pharynx
������������������������
���������������������������Heart:��s1/s2 regular rate and rhythm, no murmur. equal radial pulses.
��������������������������Lungs: ��no acute respiratory distress. clear bilaterally
����������������������Abdomen:�normal bowel sounds. not tender. no CVAT
��������������������������Neuro:��alert and oriented. no focal neurological deficits
������������������������������Skin: ��no rash
�����������������������Psychiatric:�well kept. interactive and cooperative
�����������������������Extremities:��no edema. no calf tenderness. negative homans. good distal pulses
��
�
[2024-05-02] MEDS: MIRALAX 17 GRAMS PO (11:37)
--- NOTE | 2024-05-02 14:31 | PTCARENOTE ---
patient c/o chest pain after having a bowel movement. this RN made MD and customer care voice consultant aware and administered Dilaudid 0.5 mg IV with positive pain relief. new order for Imdur PO added and noted.
[2024-05-02] MEDS: ZOFRAN 4 MG IV (16:43)
[2024-05-02] MEDS: LIPITOR 80 MG PO (20:56)
[2024-05-02] MEDS: NITROSTAT (SUBLINGUAL) 0.4 MG SL (20:57)
[2024-05-03] VITALS (8 sets, daily range): BP systolic 96–123; BP diastolic 42–60; PULSE 83; O2SAT 94; BMI 26.4
[2024-05-03] MEDS: APRESOLINE 10 MG IV (00:43)
[2024-05-03] MEDS: DILAUDID 0.5 MG IV (02:22)
[2024-05-03] MEDS: ZOFRAN 4 MG IV (02:24)
[2024-05-03] MEDS: COREG 37.5 MG PO (06:13)
[2024-05-03 06:41] LABS: Hematocrit 27.2 % (39.0-52.0); Hemoglobin 9.2 g/dL (13.0-18.0); Mean Corp Hgb Conc. 33.8 g/dL (33.0-37.0); Mean Corpuscular Hgb 30.8 pg (27.0-31.0); Mean Platelet Volume 9.8 fL (7.4-10.4); Platelet Count 214 10^3/uL (130-400); Red Blood Cell Count 2.99 10^6/uL (4.70-6.10); Red Cell Dist. Width 13.9 % (11.5-14.5); White Blood Cell Count 4.4 10^3/uL (4.8-10.8)
[2024-05-03 07:05] LABS: ALT (SGPT) 63 U/L (0-50); AST (SGOT) 38 U/L (17-59); Albumin 3.3 g/dl (3.5-5.0); Alkaline Phosphatase 89 U/L (38-126); Blood Urea Nitrogen 24 mg/dl (9-20); Calcium 8.8 mg/dl (8.4-10.2); Carbon Dioxide 20 mmol/L (22-30); Chloride 100 mmol/L (98-107); Estimated Creatinine Clearance 61 ml/min; Glucose 109 mg/dl (70-99); Magnesium 1.9 mg/dl (1.6-2.3); Phosphorus 3.4 mg/dl (2.5-4.5); Sodium 132 mmol/L (135-145); Total Bilirubin 1.1 mg/dl (0.2-1.3); eGFR 55.78
--- NOTE | 2024-05-03 07:37 | W.PN.HOSP.TC ---
Today's Communication/Plan
-
Appreciate cardiology recommendations. Following orthostatics. Will see if new adjustments help control this patient's hypertension. Added Zofran for ongoing nausea and vomiting.
Assessment / Plan
Assessment / Plan
Assessment/Plan:
-Hypertensive crisis: Unresolved
At home the patient had markedly elevated blood pressures with a systolic greater than 220 and chest pain
Patient has a type B aortic dissection
Patient admitted to the ICU
Nicardipine drip initiated with goal systolic blood pressure <120
Continue carvedilol 25 mg p.o. twice daily
Monitoring potassium
Check trops
Will conduct a repeat echocardiogram to check his aortic root and bicuspid aortic valve
Appreciate cardiology recommendations -they recommend that the patient's blood pressure be maintained ideally less than 120/80 given his recent dissection. They also believe that it would be ortega for him to follow-up with [facility] vascular
surgery given the extent of their care over the past month in regards to his treatment. -Coreg has been adjusted so that morning dose is 37.5 mg and evening dose is 25 mg. Amlodipine has been adjusted to 5 mg twice daily. Imdur 30 mg added.
Valsartan 40 mg p.o. daily added
Nitroglycerin 0.4 mg as needed added
Amlodipine has been adjusted to 5 mg twice daily.
Checking orthostatic blood pressure
-Type B aortic dissection: Monitoring
S/p EVAR at [facility]
Systolic blood pressure should be less than 120
Hydromorphone 0.5 mg IV every 4 hours as needed
Repeat echocardiogram ordered
Continue aspirin
-Anemia: Monitoring
RBCs on 04/30/2024 are 2.72, hemoglobin is 8.2, hematocrit 25.9
Will continue to monitor
-Hyponatremia: Monitoring
Patient had a sodium of 132 on admission.
Patient's sodium is 136 on 05/01/2024�within normal limits
-Obstructive sleep apnea: Monitoring
Patient has a CPAP machine at home and family will bring it
-Constipation:
MiraLAX added
-History of left carotid to subclavian transposition
-History of TEVAR and abdominal dissection stent
-Bicuspid aortic valve
CODE STATUS: FULL CODE
DVT Prophylaxis: SCDs
Imaging:
CT angio of the chest/abdomen/pelvis:
FINDINGS: CTA: Endovascular stenting seen extending from the aortic arch into the abdominal aorta distal to the renal arteries. There is contrast opacification of the stent as well as contrast opacification of the descending thoracic aorta and
abdominal aorta left lateral and predominantly posterior to the stent predominantly homogeneous in appearance with some additional unopacified appearance of the excluded anterior abdominal aorta. There is dissection of the distal abdominal aorta
extending into the proximal left common iliac artery and throughout the right common iliac artery with mild aneurysmal dilatation of the right common iliac artery especially distally measuring up to 2.6-2.7 cm, aneurysm similar size to prior CT 2019
although no dissection on prior CT.
CHEST: The trachea and central airways are patent. There is no focal parenchymal consolidation, pneumothorax, right pleural effusion or pericardial effusion. There is a tiny left pleural effusion without contrast opacification with accompanying
left lower lobe subsegmental atelectasis. There is no significant hilar, mediastinal or axillary lymphadenopathy. The heart is mildly enlarged.
ABDOMEN: There is prominent motion artifact. The gallbladder is apparently surgically absent. No gross findings are seen to suggest biliary tract dilatation. No gross focal abnormality of the pancreas, spleen, adrenal glands or kidneys are seen
although limited by motion. Evaluation of the intestinal tract is markedly limited without oral contrast, without intestinal obstruction or free air. Sigmoid anastomosis is noted. There is no retroperitoneal lymphadenopathy.
PELVIS: Bubble of air in the unopacified urinary bladder presumably the result of recent instrumentation. The hardening artifact from left hip arthroplasty otherwise significantly obscures visualization of the soft tissues of the true pelvis. The
prostate gland is likely surgically absent.
Procedures: N/A
Anticipated Discharge: > 48 hours
Subjective/Interval History
-
Date of Service: May 03, 2024
Met with patient at the bedside. He is very soft-spoken and hard to hear at times. Uses whisper words to articulate himself in a slow calm manner. States that he vomited multiple times yesterday in the evening and afternoon and was unable to keep
food down. His nausea and vomiting coincided with chest tightness/pain. He worries that he is not going in the right direction.
Objective Data
-
Labs:
Laboratory Results
05/03/24
05:52
WBC 4.4 L
Hgb 9.2 L
Hct 27.2 L
Plt Count 214
Sodium 132 L
Potassium 4.0
Chloride 100
Carbon Dioxide 20 L
BUN 24 H
Creatinine 1.4 H
Glucose 109 H
Calcium 8.8
Total Bilirubin 1.1
AST 38
ALT 63 H
Alkaline Phosphatase 89
Vital Signs:
Vital Signs
Temp Pulse Resp BP Pulse Ox
100.1 F 93 20 123/57 95
05/03/24 04:54 05/03/24 06:13 05/03/24 04:54 05/03/24 06:13 05/03/24 04:54
I&O
05/02/24 05/03/24 05/04/24
06:59 06:59 06:59
Intake Total 1740 / 1740
Balance 1740 / 1740
Review of Systems
-
History Source: Patient
Constitutional: Reports Fatigue and Weakness
EENT: Reports No Symptoms Reported
Respiratory: Reports No Symptoms
Cardiac: Reports No Symptoms
Abdomen/GI: Reports No Symptoms
Breast: Reports No Symptoms
Genitourinary: Reports No Symptoms
Musculoskeletal: Reports No Symptoms
Skin: Reports No Symptoms
Neuro: Reports No Symptoms
Psych: Reports Anxious
Physical Exam
-
General: Well Developed and Well Nourished
HEENT: Normocephalic, Atraumatic and Moist Mucous Membranes
Respiratory: Clear to Auscultation
Cardiac: S1/S2 and Murmur; Negative JVD
Breast: Deferred by me
GI: Soft, Nontender, Nondistended and Normal Bowel Sounds
Rectal: Deferred by Provider
Genito-urinary: Deferred by me
Musculoskeletal: No Clubbing, No Cyanosis and No Edema
Skin: Warm and Dry; Negative Rash or Ulcers
Neuro: Awake, Alert, Oriented and AO x 3
Psych: Anxious
[2024-05-03] MEDS: ASPIR LOW (ENTERIC COATED) 81 MG PO (08:40)
[2024-05-03] MEDS: NORVASC 5 MG PO ×2 (08:40→20:33)
[2024-05-03] MEDS: DIOVAN 40 MG PO (08:40)
[2024-05-03] MEDS: ZOFRAN 4 MG PO (08:40)
--- NOTE | 2024-05-03 11:45 | CM ---
Patient seen at bedside. Patient states that he lives alone, however, nursing updated CM that Patient has a girlfriend/fiance who assists with caregiving. Patient stated that he lives in a one story home and uses the [facility] on [address],
Patient has a CPAP at home and has brought it in. Patient was independent prior to admission. PCP is Dr. Linocln and patient is awaiting assessment from PT/OT. Patient had been discharged from [facility] and was to be followed by [facility]/managed
by Bridget but the start date was 05/05/24 so patient was not happy that he did not get seen prior to admission to . CM will review with patient to determine if he still wants [facility] mannaged by Bridget or what he wants to do. CM will continue
to follow for discharge planning needs.
Plan; home with VN; confirm patient willingness to follow with Vini/bridget
[2024-05-03] MEDS: IMDUR (EXTENDED RELEASE) 30 MG PO (12:36)
--- NOTE | 2024-05-03 13:49 | W.PN.CARDCBS ---
Addendum entered and electronically signed by Diana Arcos PA-C 05/03/24 15:54:
Obtained and reviewed records from his [place] admission 04/2024.
-Echo 04/10/2024: [facility] study, EF 70 to 75%, aortic valve not well visualized and appears bicuspid with reduced excursion and moderate with a peak/mean 39/25 mmHg and TRACY 1.4 to cm sq, mild to moderate aortic regurgitation
-Echo 05/03/2024: study, EF 60 to 65%, bicuspid aortic valve with thickened leaflets and restricted leaflet motion, peak/mean 88/50 mmHg and TRACY 0.9 cm sq c/w moderate to severe and moderate aortic regurgitation
Addendum entered and electronically signed by Isaac Shipley MD 05/03/24 15:00:
I saw and examined the patient.
The TONG CARRIER or PA's note was reviewed and I agree with the note.
Comment: General: Well developed, well nourished in NAD.
Neck: Supple, no JVD, HJR, carotids +2 B/L, no bruits bilaterally.
Heart: Non displaced PMI, RRR, no murmurs, No S3, S4, no rubs.
Lungs: Scattered rhonchi
Extremities: No clubbing, cyanosis or edema bilaterally.
Neuro: Grossly nonfocal, awake, alert and oriented x3.
He continues with atypical chest pain with negative troponins during this admission. Blood pressure is well-controlled. Echo with worsening aortic stenosis which is now severe. Mean pressure gradient is increased to 50 mmHg. May need to discuss
aortic valve surgery when he has recovered from current illness
Original Note:
Today's Communication / Plan
-
Echo pending
Impression / Plan
-
PCP: Dr. Wyman
Cardiology: Dr. Paniagua, last seen 10/01/22
Impression:
Admitted for chest pain and HTN urgency 04/30/24
Chest pain
HTN urgency
Recent admission to [facility] for Type B aortic dissection 04/2024, d/c'd 04/23/24
s/p left carotid to subclavian transposition at [facility] 04/15/24
TEVAR and abdominal dissection stent [facility] 04/16/24
Post-op hypotension
CONSUELO post-op
Ongoing iron deficiency anemia from blood loss
Bicuspid aortic valve
Mixed hyperlipidemia
Aortic root 4.3 cm at 2022 echo
Echo 05/09/2022: EF 55 to 60%, mild MR, bicuspid AV with mild stenosis and at least moderate eccentric aortic regurgitation peak/mean 51/20 mmHg and TRACY 1.8 to 1.9 cm SQ, dilated aortic root and ascending aorta
Echo 05/03/2024: Study pending
Recommendations:
-BP on admission was as high as 179/77. BP now down to 113/50
-Outpatient dose of Coreg increased to 37.5 mg in AM and 25 mg in PM daily
-New to amlodipine 5 mg BID
-New to valsartan 40 mg daily.
-New CONSUELO with Cre 1.4 on 05/03/24. Patient was noted to have CONSUELO post-op at [facility] as well. Cre as high as 1.7 at [facility]. Will hold valsartan in AM pending labs
-New to Imdur ER 30 mg daily, started 05/03/24.
-Echo pending
-Troponin serially normal and peaked at 0.013
HPI: Kirby Noel is a pleasant gentleman 64 years old who we have not seen since October 2022 in the office. He has been getting his recent cardiology and surgical care at [facility] after going to the [facility] emergency room with chest and abdominal symptoms and was diagnosed with a type B aortic dissection. Importantly he has a history of bicuspid aortic valve. I do not have his complete records from [facility] but I
do have a discharge summary from April 28, 2024. He has had a recent complex medical history including tobacco use, congenital bicuspid aortic valve, hypertension, aortic stenosis, chronic pancreatitis, diverticulosis, DVT, HLD, prostate cancer
status post prostatectomy and most recently a type B aortic dissection with initial left carotid to subclavian transposition and thoracic duct ligation on April 15, 2024 at [facility] and TEVAR with abdominal dissection
stent on April 16. He was discharged uneventfully on April 23 from [facility] and then returned the following day with complaints of chest pain and shortness of breath. He had a creatinine of 1.7, troponin of 29 and
hemoglobin of 8 with a CTA obtained demonstrating postsurgical changes from the TEVAR and bypass and similar appearance of the distal aspect of the dissection flap extending into the iliac arteries. He had a similar-appearing fusiform aneurysm of
the right common iliac artery. He had contrast opacification of the false lumen likely secondary to reentry tear in the infrarenal abdominal aorta dissection flap. Cardiology was consulted while the patient was hospitalized and felt the pain to be
not likely cardiac in origin. There appears to be notes that he has follow-up arranged with cardiology at [facility]. He then called our cardiology on-call service last night and had complaints of chest pain with a blood pressure of 220/120. I
told him to immediately come to the emergency room which she did and he was placed on a Cardene drip. Current blood pressure is 130/60 and he is pain-free currently. He is on Coreg 25 mg twice daily and nifedipine 3 times daily plus spironolactone
as outpatient medications and current blood pressure medications in the emergency room are the Cardene drip, Coreg, and valsartan was added. He has a holosystolic murmur presumably from his bicuspid aortic valve. His creatinine has normalized.
Hemoglobin is noted to be 8.
Progress Note - Put In Beat Adjuster
Subjective
Date of Service: May 03, 2024
He feels well
Objective
Labs:
05/03/24 05:52
05/03/24 05:52
Labs
Hgb 9.2 g/dL (13.0-18.0) L 05/03/24 05:52
Hct 27.2 % (39.0-52.0) L 05/03/24 05:52
Plt Count 214 10^3/uL (130-400) 05/03/24 05:52
PT 15.9 Sec (11.4-14.6) H 04/30/24 20:10
INR 1.24 04/30/24 20:10
APTT 38.3 Sec (23.4-35.0) H 04/30/24 20:10
Sodium 132 mmol/L (135-145) L 05/03/24 05:52
Potassium 4.0 mmol/L (3.5-5.1) 05/03/24 05:52
BUN 24 mg/dl (9-20) H 05/03/24 05:52
Creatinine 1.4 mg/dL (0.7-1.3) H 05/03/24 05:52
Glucose 109 mg/dl (70-99) H 05/03/24 05:52
Troponins
04/30/24 05/01/24 05/01/24
20:10 02:44 05:58
Troponin I 0.013 < 0.012 0.012
Vital Signs and I&O:
Vital Signs
Temp Pulse Resp BP Pulse Ox
98.1 F 74 16 113/50 97
05/03/24 11:28 05/03/24 11:28 05/03/24 11:28 05/03/24 11:28 05/03/24 11:28
Vital Signs
Temp Pulse Resp BP Pulse Ox
98.1 F 74 16 113/50 97
05/03/24 11:28 05/03/24 11:28 05/03/24 11:28 05/03/24 11:28 05/03/24 11:28
Intake & Output
05/01/24 05/02/24 05/03/24 05/04/24
06:59 06:59 06:59 06:59
Intake Total 174 / 1740
Balance 1740 / 1740
Physical Exam
Physical Exam
GEN: NAD
LUNGS: RA
CV: SR on tele
[2024-05-03] MEDS: NSS 1000 IV (15:52)
--- NOTE | 2024-05-03 16:40 | W.PN.UPDATE ---
Update Note
Progress Note Update
Seen and examined by me independently in collaboration with the medical instructor.
Lab data and imaging data reviewed.
Addendum as below :
Patient with new onset of GI symptoms-had multiple episodes of loose stools yesterday. He also has and has nausea. Not much oral intake.
Patient has slight dizziness especially if when standing up.
Feels weak.
Blood pressure has improved with introduction of new medication.
His creatinine is worsened in the last 24 hours meeting criteria for CONSUELO unclear if it is hemodynamics related or prerenal from GI losses.
Start on IV fluids and follow creatinine closely. Check orthostatic blood pressure. Continue with blood pressure medication with parameters.
If further ongoing diarrhea will do stool studies. Patient is not sure if he received any antibiotics during his recent hospital stay.
--- NOTE | 2024-05-03 16:59 | W.PN.UPDATE ---
Update Note
Progress Note Update
Talked with patient's sister while in the room with patient, her name is Ruthann and she is an RN. We reviewed some of his admission from [facility] and also admission here. We reviewed the echo here compared to echo as he had down at [facility]. It sounds
as though his cardiology team down at [facility] knew about the AF and was planning on talking to the patient at his appointment in the first week of June to discuss options for management including SAVR versus TAVR. Patient is not sleeping well at
night and his sister would like him to try a medication, offered to try Ativan 1 mg at bedtime as needed insomnia. Also discussed with patient that this will not be something he goes home with and it is a crutch. He needs to focus on talking
therapy and suggested that he ask his family to cultivate online resources for therapy with a focus on PTSD from medical issues. Talked with patient's sister by phone for 19 minutes 34 seconds
[2024-05-03] MEDS: LIPITOR 80 MG PO (22:02)
[2024-05-03] MEDS: ATIVAN 1 MG PO (22:02)
[2024-05-03] MEDS: COREG 25 MG PO (22:06)
[2024-05-04] VITALS (7 sets, daily range): BP systolic 93–139; BP diastolic 46–66; PULSE 64–75; BMI 26.4
[2024-05-04] MEDS: NSS 1000 IV (05:22)
[2024-05-04] MEDS: COREG 37.5 MG PO (05:26)
[2024-05-04 06:33] LABS: Hematocrit 24.4 % (39.0-52.0); Hemoglobin 8.1 g/dL (13.0-18.0); Mean Corp Hgb Conc. 33.2 g/dL (33.0-37.0); Mean Corpuscular Hgb 29.9 pg (27.0-31.0); Mean Platelet Volume 9.6 fL (7.4-10.4); Platelet Count 186 10^3/uL (130-400); Red Blood Cell Count 2.71 10^6/uL (4.70-6.10); Red Cell Dist. Width 13.9 % (11.5-14.5); White Blood Cell Count 3.2 10^3/uL (4.8-10.8)
[2024-05-04 06:57] LABS: ALT (SGPT) 50 U/L (0-50); AST (SGOT) 31 U/L (17-59); Albumin 2.9 g/dl (3.5-5.0); Alkaline Phosphatase 79 U/L (38-126); Blood Urea Nitrogen 26 mg/dl (9-20); Calcium 8.6 mg/dl (8.4-10.2); Carbon Dioxide 21 mmol/L (22-30); Chloride 98 mmol/L (98-107); Estimated Creatinine Clearance 57 ml/min; Glucose 93 mg/dl (70-99); Phosphorus 3.7 mg/dl (2.5-4.5); Potassium 3.6 mmol/L (3.5-5.1); Sodium 130 mmol/L (135-145); Total Bilirubin 0.8 mg/dl (0.2-1.3); Total Protein 5.6 g/dl (6.3-8.2); eGFR 51.35
--- NOTE | 2024-05-04 07:30 | W.PN.HOSP.TC ---
Addendum entered and electronically signed by Isael Oakley MD 05/04/24 14:13:
Seen and examined by me independently in collaboration with the medical or surgical instrument maker.
Lab data and imaging data reviewed.
Addendum as below :
Improving GI symptoms. Ate his breakfast. No nausea. No diarrhea. Semiformed stool today.
Denies any urinary retention. He had a prostate surgery and had needed intermittent catheterization in the past but has not lately needed it.
Denies any dysuria. Denies any frequency.
Creatinine now 1.5 compared to 1.4 yesterday. I suspect his CONSUELO may be multifactorial including hemodynamics, contrast IV, and improved oral intake.
Continue with IV fluids today check bladder scan and follow. In a.m. if stable DC home.
Discussed with cardiology-they are comfortable with the current antihypertensives minus ARB.
Original Note:
Today's Communication/Plan
-
Patient's creatinine 1.5 from a baseline of 1.0 which indicates acute kidney injury. It is uncertain whether this is due to hemodynamic causes, renal artery patency, or prerenal from GI losses. IV fluids given. Continue to follow creatinine.
Nighttime Ativan added for ongoing difficulty of sleeping and anxiety.
Assessment / Plan
Assessment / Plan
Assessment/Plan:
-Hypertensive crisis: Unresolved
At home the patient had markedly elevated blood pressures with a systolic greater than 220 and chest pain
Patient has a type B aortic dissection
Patient admitted to the ICU
Nicardipine drip initiated with goal systolic blood pressure <120
Continue carvedilol 25 mg p.o. twice daily
Monitoring potassium
Check trops
Will conduct a repeat echocardiogram to check his aortic root and bicuspid aortic valve
Appreciate cardiology recommendations -they recommend that the patient's blood pressure be maintained ideally less than 120/80 given his recent dissection. They also believe that it would be ortega for him to follow-up with [facility] vascular
surgery given the extent of their care over the past month in regards to his treatment. -Coreg has been adjusted so that morning dose is 37.5 mg and evening dose is 25 mg. Amlodipine has been adjusted to 5 mg twice daily. Imdur 30 mg added.
Valsartan 40 mg p.o. daily added
Nitroglycerin 0.4 mg as needed added
Amlodipine has been adjusted to 5 mg twice daily.
Checking orthostatic blood pressure
-Acute kidney injury:
Patient's creatinine was 1.0 on admission, on 05/04/24 the patient's creatinine was detected at 1.5
Uncertain if it is more dynamic related or prerenal from GI losses.
IV fluids
Following creatinine
Continue to check orthostatics
-Type B aortic dissection: Monitoring
S/p EVAR at [facility]
Systolic blood pressure should be less than 120
Hydromorphone 0.5 mg IV every 4 hours as needed
Repeat echocardiogram ordered
Continue aspirin
-Anemia: Monitoring
RBCs on 04/30/2024 are 2.72, hemoglobin is 8.2, hematocrit 25.9
Patient's hemoglobin on 05/04/24 was 8.1
Will continue to monitor
-Hyponatremia: Monitoring
Patient had a sodium of 132 on admission.
Patient's sodium is 136 on 05/01/2024�within normal limits
-Obstructive sleep apnea: Monitoring
Patient has a CPAP machine at home and family will bring it
-Constipation:
MiraLAX added
-Anxiety/sleep disturbance:
Evening Ativan added
-History of left carotid to subclavian transposition
-History of TEVAR and abdominal dissection stent
-Bicuspid aortic valve
CODE STATUS: FULL CODE
DVT Prophylaxis: SCDs
Imaging:
CT angio of the chest/abdomen/pelvis:
FINDINGS: CTA: Endovascular stenting seen extending from the aortic arch into the abdominal aorta distal to the renal arteries. There is contrast opacification of the stent as well as contrast opacification of the descending thoracic aorta and
abdominal aorta left lateral and predominantly posterior to the stent predominantly homogeneous in appearance with some additional unopacified appearance of the excluded anterior abdominal aorta. There is dissection of the distal abdominal aorta
extending into the proximal left common iliac artery and throughout the right common iliac artery with mild aneurysmal dilatation of the right common iliac artery especially distally measuring up to 2.6-2.7 cm, aneurysm similar size to prior CT 2019
although no dissection on prior CT.
CHEST: The trachea and central airways are patent. There is no focal parenchymal consolidation, pneumothorax, right pleural effusion or pericardial effusion. There is a tiny left pleural effusion without contrast opacification with accompanying
left lower lobe subsegmental atelectasis. There is no significant hilar, mediastinal or axillary lymphadenopathy. The heart is mildly enlarged.
ABDOMEN: There is prominent motion artifact. The gallbladder is apparently surgically absent. No gross findings are seen to suggest biliary tract dilatation. No gross focal abnormality of the pancreas, spleen, adrenal glands or kidneys are seen
although limited by motion. Evaluation of the intestinal tract is markedly limited without oral contrast, without intestinal obstruction or free air. Sigmoid anastomosis is noted. There is no retroperitoneal lymphadenopathy.
PELVIS: Bubble of air in the unopacified urinary bladder presumably the result of recent instrumentation. The hardening artifact from left hip arthroplasty otherwise significantly obscures visualization of the soft tissues of the true pelvis. The
prostate gland is likely surgically absent.
Procedures: N/A
Anticipated Discharge: 24 - 48 hours
Subjective/Interval History
-
Date of Service: May 04, 2024
Met with the patient at the bedside. He continues to show clear anxiety and appears visibly afraid. Supportive counseling provided at the bedside. Patient believes that he slept better with the Ativan that was given to him last night. Had a
discussion with the patient about the benefits of therapy and techniques to reduce stress.
Objective Data
-
Labs:
Laboratory Results
05/04/24
05:40
WBC 3.2 L
Hgb 8.1 L
Hct 24.4 L
Plt Count 186
Sodium 130 L
Potassium 3.6
Chloride 98
Carbon Dioxide 21 L
BUN 26 H
Creatinine 1.5 H
Glucose 93
Calcium 8.6
Total Bilirubin 0.8
AST 31
ALT 50
Alkaline Phosphatase 79
Vital Signs:
Vital Signs
Temp Pulse Resp BP Pulse Ox
98.3 F 64 16 132/63 96
05/04/24 07:45 05/04/24 08:55 05/04/24 07:45 05/04/24 08:55 05/04/24 07:45
I&O
05/03/24 05/04/24 05/05/24
06:59 06:59 06:59
Intake Total 1740 / 1740 1080 / 1080 960 / 960
Balance 1740 / 1740 1080 / 1080 960 / 960
Review of Systems
-
History Source: Patient
All other systems: Reviewed and negative
Constitutional: Reports Fatigue and Sleep Disturbance
EENT: Reports No Symptoms Reported
Respiratory: Reports No Symptoms
Cardiac: Reports No Symptoms
Abdomen/GI: Reports No Symptoms
Breast: Reports No Symptoms
Genitourinary: Reports No Symptoms
Musculoskeletal: Reports No Symptoms
Skin: Reports No Symptoms
Neuro: Reports No Symptoms
Endocrine: Reports No Symptoms
Hematologic / Lymphatic: Reports No Symptoms
Psych: Reports Sad and Anxious
Physical Exam
-
General: Well Developed, Well Nourished, No Apparent Distress and Comfortable
HEENT: Normocephalic, Atraumatic and Moist Mucous Membranes
Respiratory: Clear to Auscultation; Negative Wheezes, Rhonchi or Crackles
Cardiac: S1/S2 and Murmur; Negative Rub or JVD
Breast: Deferred by me
GI: Soft, Nontender, Nondistended and Normal Bowel Sounds
Rectal: Deferred by Provider
Genito-urinary: Deferred by me
Musculoskeletal: No Clubbing, No Cyanosis and No Edema
Skin: Warm and Dry
Neuro: Awake, Alert, Oriented and AO x 3
Psych: Calm
[2024-05-04] MEDS: NORVASC 5 MG PO ×2 (08:55→20:50)
[2024-05-04] MEDS: ASPIR LOW (ENTERIC COATED) 81 MG PO (09:04)
[2024-05-04] MEDS: IMDUR (EXTENDED RELEASE) 30 MG PO (12:46)
--- NOTE | 2024-05-04 13:36 | W.PN.CARDCBS ---
Addendum entered and electronically signed by Miguel Chamberlain DO 05/05/24 05:53:
I saw and examined the patient.
The Member Service Representative's note was reviewed and I agree with the note.
Comment:
Plan:
Admitted with hypertensive urgency.
Bp improved with Norvasc and continuing Coreg
BP stable off Valsartan and would leave off.
Outpt eval of for SAVR vs TAVR at [facility] and pt already has appointment.
Discussed with primary service
Please recall if needed
Original Note:
Today's Communication / Plan
-
BP controlled without valsartan and would not send home on valsartan
Impression / Plan
-
PCP: Dr. Wyman
Cardiology: Dr. Paniagua, last seen 10/01/22
Impression:
Admitted for chest pain and HTN urgency 04/30/24
Chest pain
HTN urgency
Recent admission to [facility] for Type B aortic dissection 04/2024, d/c'd 04/23/24
s/p left carotid to subclavian transposition at [facility] 04/15/24
TEVAR and abdominal dissection stent [facility] 04/16/24
Post-op hypotension
CONSUELO post-op
Ongoing iron deficiency anemia from blood loss
Bicuspid aortic valve
Mixed hyperlipidemia
Aortic root 4.3 cm at 2022 echo
Echo 05/09/2022: EF 55 to 60%, mild MR, bicuspid AV with mild stenosis and at least moderate eccentric aortic regurgitation peak/mean 51/20 mmHg and TRACY 1.8 to 1.9 cm SQ, dilated aortic root and ascending aorta
Echo 04/10/2024: [facility] study, EF 70 to 75%, aortic valve not well visualized and appears bicuspid with reduced excursion and moderate with a peak/mean 39/25 mmHg and TRACY 1.4 to cm sq, mild to moderate aortic regurgitation
Echo 05/03/2024: EF 60 to 65%, bicuspid aortic valve with peak/mean 88/50 mmHg and TRACY 0.9 cm SQ, moderate aortic regurgitation
Recommendations:
-Echo from 05/03/2024 was reviewed with the patient and his sister on 05/03/2024. The patient's sister, who is a nurse, was aware of the severe AAS and reports that patient is scheduled to see the surgery team at [facility] the first week of June to discuss
management options which include SAVR vs TAVR
-BP has improved with initiation of amlodipine 5 mg BID
-Outpatient dose of Coreg increased to 37.5 mg in AM and 25 mg in PM daily
-New to amlodipine 5 mg BID
-New to Imdur ER 30 mg daily
-New to valsartan 40 mg daily this admission, but then developed CONSUELO likely from CTA on admission and valsartan has been on hold. Despite valsartan being on hold the BP has remained improved and would stop valsartan and would not send patient home
on valsartan.
-New CONSUELO with Cre 1.4 on 05/03/24. Patient was noted to have CONSUELO post-op at [facility] as well. Cre as high as 1.7 at [facility]. Will hold valsartan in AM pending labs
-Troponin serially normal and peaked at 0.013
HPI: Kirby Noel is a pleasant gentleman 64 years old who we have not seen since October 2022 in the office. He has been getting his recent cardiology and surgical care at [facility] after going to the [facility] emergency room with chest and abdominal symptoms and was diagnosed with a type B aortic dissection. Importantly he has a history of bicuspid aortic valve. I do not have his complete records from [facility] but I
do have a discharge summary from April 28, 2024. He has had a recent complex medical history including tobacco use, congenital bicuspid aortic valve, hypertension, aortic stenosis, chronic pancreatitis, diverticulosis, DVT, HLD, prostate cancer
status post prostatectomy and most recently a type B aortic dissection with initial left carotid to subclavian transposition and thoracic duct ligation on April 15, 2024 at [facility] and TEVAR with abdominal dissection
stent on April 16. He was discharged uneventfully on April 23 from [facility] and then returned the following day with complaints of chest pain and shortness of breath. He had a creatinine of 1.7, troponin of 29 and
hemoglobin of 8 with a CTA obtained demonstrating postsurgical changes from the TEVAR and bypass and similar appearance of the distal aspect of the dissection flap extending into the iliac arteries. He had a similar-appearing fusiform aneurysm of
the right common iliac artery. He had contrast opacification of the false lumen likely secondary to reentry tear in the infrarenal abdominal aorta dissection flap. Cardiology was consulted while the patient was hospitalized and felt the pain to be
not likely cardiac in origin. There appears to be notes that he has follow-up arranged with cardiology at [facility]. He then called our cardiology on-call service last night and had complaints of chest pain with a blood pressure of 220/120. I
told him to immediately come to the emergency room which she did and he was placed on a Cardene drip. Current blood pressure is 130/60 and he is pain-free currently. He is on Coreg 25 mg twice daily and nifedipine 3 times daily plus spironolactone
as outpatient medications and current blood pressure medications in the emergency room are the Cardene drip, Coreg, and valsartan was added. He has a holosystolic murmur presumably from his bicuspid aortic valve. His creatinine has normalized.
Hemoglobin is noted to be 8.
Progress Note - Registered Nurse Float Pool
Subjective
Date of Service: May 04, 2024
He feels about the same, but slept a bit better
Objective
Labs:
05/04/24 05:40
05/04/24 05:40
Labs
Hgb 8.1 g/dL (13.0-18.0) L 05/04/24 05:40
Hct 24.4 % (39.0-52.0) L 05/04/24 05:40
Plt Count 186 10^3/uL (130-400) 05/04/24 05:40
PT 15.9 Sec (11.4-14.6) H 04/30/24 20:10
INR 1.24 04/30/24 20:10
APTT 38.3 Sec (23.4-35.0) H 04/30/24 20:10
Sodium 130 mmol/L (135-145) L 05/04/24 05:40
Potassium 3.6 mmol/L (3.5-5.1) 05/04/24 05:40
BUN 26 mg/dl (9-20) H 05/04/24 05:40
Creatinine 1.5 mg/dL (0.7-1.3) H 05/04/24 05:40
Glucose 93 mg/dl (70-99) 05/04/24 05:40
Vital Signs and I&O:
Vital Signs
Temp Pulse Resp BP Pulse Ox
98.8 F 66 18 111/46 98
05/04/24 11:53 05/04/24 11:53 05/04/24 11:53 05/04/24 11:53 05/04/24 11:53
Vital Signs
Temp Pulse Resp BP Pulse Ox
98.8 F 66 18 111/46 98
05/04/24 11:53 05/04/24 11:53 05/04/24 11:53 05/04/24 11:53 05/04/24 11:53
Intake & Output
05/02/24 05/03/24 05/04/24 05/05/24
06:59 06:59 06:59 06:59
Intake Total 1740 / 1740 [employer] / 1080 960 / 960
Balance 1740 / 1740 [employer] / [employer] 960 / 960
Physical Exam
Physical Exam
GEN: NAD
LUNGS: RA
CV: SR on tele
[2024-05-04 15:09] LABS: Urine Albumin 1+ (Neg - Trace); Urine Bilirubin Negative (Negative); Urine Character Clear (Clear); Urine Color Yellow; Urine Glucose Negative (Negative); Urine Ketone Negative (Negative); Urine Leukocyte Negative (Negative); Urine Nitrite Negative (Negative); Urine Occult Blood 3+ (Negative); Urine Specific Gravity 1.015 (<1.030); Urine Urobilinogen Negative (Neg - 1+)
[2024-05-04 15:23] LABS: Urine Squamous Cell 0-2 /LPF (Few)
[2024-05-04 15:24] LABS: Urine Red Blood Cell 0-2 /HPF (0-2); Urine White Cell 0-2 /HPF (0-5)
[2024-05-04] MEDS: LIPITOR 80 MG PO (22:07)
[2024-05-04] MEDS: COREG 25 MG PO (22:07)
[2024-05-04] MEDS: ATIVAN 1 MG PO (22:07)
[2024-05-05] MEDS: NSS 1000 IV ×2 (00:34→07:46)
[2024-05-05 03:00] VITALS: BP 120/57
[2024-05-05] MEDS: COREG 37.5 MG PO (05:13)
[2024-05-05 06:08] VITALS: BP 134/55
--- NOTE | 2024-05-05 06:09 | PTCARENOTE ---
Patient call edward ringing. Patient in bed with c/o chest pain that started while 'having a strenuous BM' a few minutes ago. BP 134/55 HR 64 O2Sat 99% room air. Primary RN informed. Patient rates pain 5/10 to left chest. Pain resolved while
EKG being setup. Primary RN reaching ORTHOPEDICALLY IMPAIRED TEACHER, covering floor.
[2024-05-05 06:15] LABS: Hematocrit 25.7 % (39.0-52.0); Hemoglobin 8.6 g/dL (13.0-18.0); Mean Corp Hgb Conc. 33.5 g/dL (33.0-37.0); Mean Corpuscular Hgb 29.9 pg (27.0-31.0); Mean Corpuscular Volume 89.2 fL (80.0-94.0); Mean Platelet Volume 9.7 fL (7.4-10.4); Platelet Count 187 10^3/uL (130-400); Red Blood Cell Count 2.88 10^6/uL (4.70-6.10); Red Cell Dist. Width 13.6 % (11.5-14.5); White Blood Cell Count 3.9 10^3/uL (4.8-10.8)
--- NOTE | 2024-05-05 06:24 | PTCARENOTE ---
Pt reported to patient health care marketing manager that he was experiencing chest pain after having a BM. Pt assessed, vitals taken, EKG obtained. INTERNAL COMMUNICATIONS SPECIALIST notified of pt status. INTERNAL COMMUNICATIONS SPECIALIST ordered trop. Vitals stable, EKG sent to INTERNAL COMMUNICATIONS SPECIALIST. Pt stated that chest pain resolved on
its own after finishing EKG. Will continue to monitor pt.
[2024-05-05 06:38] LABS: Blood Urea Nitrogen 23 mg/dl (9-20); Calcium 8.4 mg/dl (8.4-10.2); Carbon Dioxide 22 mmol/L (22-30); Chloride 101 mmol/L (98-107); Estimated Creatinine Clearance 71 ml/min; Glucose 94 mg/dl (70-99); Iron 29 ug/dl (49-181); Potassium 3.8 mmol/L (3.5-5.1); Sodium 132 mmol/L (135-145); eGFR > 60.00
[2024-05-05 06:48] LABS: Percent Saturation 12 % (20-50); Total Iron Binding Capacity 240 ug/dl (261-462)
[2024-05-05 07:15] LABS: Troponin I 0.045 ng/ml
[2024-05-05 07:30] VITALS: BP 116/49
--- NOTE | 2024-05-05 07:30 | W.PN.HOSP.TC ---
Addendum entered and electronically signed by Isael Oakley MD 05/05/24 16:04:
Repeat trop 0.03 again indeterminate range. Pt hasnt had Chest symptoms since this am. Advised to call or return to ER if any chest pain lasting >15min
Addendum entered and electronically signed by Isael Oakley MD 05/05/24 15:46:
Seen and examined by me independently in collaboration with the registered medical transcriptionist.
Lab data and imaging data reviewed.
Addendum as below :
Does not feel dizzy anymore. Blood pressure remained stable. Remains off of ARB. Improved creatinine. No further GI symptoms. Tolerating diet. DC further IV fluids.
This morning when he was having bowel movement and straining he had less than 5 minutes of chest discomfort which resolved. EKG without acute ST/T changes. Trop indeterminate. Repeat troponin and depending we will DC plan.
Anemia and based on Iron studies anemia of chroinc dz. Looks at his labs prior 04/21 his HH was 8.9 . No obvious external bleeding. Check heme test stools and DC.
Original Note:
Today's Communication/Plan
-
EKG taken on 05/05/2024 following episode of chest pain was normal sinus rhythm with no significant change from prior EKG. Trops taken shortly after episode of chest pain on the evening of 05/04/2024 was elevated at 0.045 -will trend tropes-if trending
downward we will move forward with discharge planning. Patient will follow-up with cardiology in the outpatient setting. The patient will be discharged on Coreg 37.5 mg in the morning and 25 mg in the evening, Amlodipine twice daily, and Imdur 30
mg.
Assessment / Plan
Assessment / Plan
Assessment/Plan:
-Hypertensive crisis: Unresolved
At home the patient had markedly elevated blood pressures with a systolic greater than 220 and chest pain
Patient has a type B aortic dissection
Patient admitted to the ICU
Nicardipine drip initiated with goal systolic blood pressure <120
Continue carvedilol 25 mg p.o. twice daily
Monitoring potassium
Check trops
Will conduct a repeat echocardiogram to check his aortic root and bicuspid aortic valve
Appreciate cardiology recommendations -they recommend that the patient's blood pressure be maintained ideally less than 120/80 given his recent dissection. They also believe that it would be ortega for him to follow-up with [facility] vascular
surgery given the extent of their care over the past month in regards to his treatment. -Coreg has been adjusted so that morning dose is 37.5 mg and evening dose is 25 mg. Amlodipine has been adjusted to 5 mg twice daily. Imdur 30 mg added.
Nitroglycerin 0.4 mg as needed added
Checking orthostatic blood pressure
EKG taken on 05/05/2024 following episode of chest pain was normal sinus rhythm with no significant change from prior EKG
Trops taken shortly after episode of chest pain on the evening of 05/04/2024 was elevated at 0.045 -will trend tropes
-Acute kidney injury:
Patient's creatinine was 1.0 on admission, on 05/04/24 the patient's creatinine was detected at 1.5
Uncertain if it is more dynamic related or prerenal from GI losses.
IV fluids
Following creatinine
Continue to check orthostatics
-Type B aortic dissection: Monitoring
S/p EVAR at [facility]
Systolic blood pressure should be less than 120
Hydromorphone 0.5 mg IV every 4 hours as needed
Repeat echocardiogram ordered
Continue aspirin
-Anemia: Monitoring
RBCs on 04/30/2024 are 2.72, hemoglobin is 8.2, hematocrit 25.9
Patient's hemoglobin on 05/04/24 was 8.1
Will continue to monitor
-Hyponatremia: Monitoring
Patient had a sodium of 132 on admission.
Patient's sodium is 136 on 05/01/2024�within normal limits
-Obstructive sleep apnea: Monitoring
Patient has a CPAP machine at home and family will bring it
-Constipation:
MiraLAX added
-Anxiety/sleep disturbance:
Evening Ativan added
-History of left carotid to subclavian transposition
-History of TEVAR and abdominal dissection stent
-Bicuspid aortic valve
CODE STATUS: FULL CODE
DVT Prophylaxis: SCDs
Imaging:
CT angio of the chest/abdomen/pelvis:
FINDINGS: CTA: Endovascular stenting seen extending from the aortic arch into the abdominal aorta distal to the renal arteries. There is contrast opacification of the stent as well as contrast opacification of the descending thoracic aorta and
abdominal aorta left lateral and predominantly posterior to the stent predominantly homogeneous in appearance with some additional unopacified appearance of the excluded anterior abdominal aorta. There is dissection of the distal abdominal aorta
extending into the proximal left common iliac artery and throughout the right common iliac artery with mild aneurysmal dilatation of the right common iliac artery especially distally measuring up to 2.6-2.7 cm, aneurysm similar size to prior CT 2019
although no dissection on prior CT.
CHEST: The trachea and central airways are patent. There is no focal parenchymal consolidation, pneumothorax, right pleural effusion or pericardial effusion. There is a tiny left pleural effusion without contrast opacification with accompanying
left lower lobe subsegmental atelectasis. There is no significant hilar, mediastinal or axillary lymphadenopathy. The heart is mildly enlarged.
ABDOMEN: There is prominent motion artifact. The gallbladder is apparently surgically absent. No gross findings are seen to suggest biliary tract dilatation. No gross focal abnormality of the pancreas, spleen, adrenal glands or kidneys are seen
although limited by motion. Evaluation of the intestinal tract is markedly limited without oral contrast, without intestinal obstruction or free air. Sigmoid anastomosis is noted. There is no retroperitoneal lymphadenopathy.
PELVIS: Bubble of air in the unopacified urinary bladder presumably the result of recent instrumentation. The hardening artifact from left hip arthroplasty otherwise significantly obscures visualization of the soft tissues of the true pelvis. The
prostate gland is likely surgically absent.
Procedures: N/A
Anticipated Discharge: Within 24 hours
Subjective/Interval History
-
Date of Service: May 05, 2024
Met with the patient at the bedside. He reported having chest tightness with mild pain for a short duration approximately 5 minutes last night. This episode happened during an episode of constipation where he was straining on the toilet. He did
not have any associated shortness of breath nausea or vomiting. He continues to be very anxious about his current condition and is very soft-spoken. Patient states that he is contending with ongoing anxiety and that is part of the reason why he is
having difficulty sleeping. At the present time he is resting comfortably in bed laying down.
Objective Data
-
Labs:
Laboratory Results
05/05/24
05:48
WBC 3.9 L
Hgb 8.6 L
Hct 25.7 L
Plt Count 187
Sodium 132 L
Potassium 3.8
Chloride 101
Carbon Dioxide 22
BUN 23 H
Creatinine 1.2
Glucose 94
Calcium 8.4
Vital Signs:
Vital Signs
Temp Pulse Resp BP Pulse Ox
97.3 F 62 16 119/66 98
05/05/24 11:30 05/05/24 11:30 05/05/24 11:30 05/05/24 11:30 05/05/24 11:30
I&O
05/04/24 05/05/24 05/06/24
06:59 06:59 06:59
Intake Total 1080 / 1080 2400 / 2400
Output Total 300 / 300
Balance 1080 / 1080 2100 / 2100
Review of Systems
-
History Source: Patient
Constitutional: Reports No Symptoms
EENT: Reports No Symptoms Reported
Respiratory: Reports No Symptoms
Cardiac: Reports No Symptoms
Abdomen/GI: Reports No Symptoms
Breast: Reports No Symptoms
Genitourinary: Reports No Symptoms
Musculoskeletal: Reports No Symptoms
Skin: Reports No Symptoms
Neuro: Reports No Symptoms
Endocrine: Reports No Symptoms
Hematologic / Lymphatic: Reports No Symptoms
Psych: Reports Anxious
Physical Exam
-
General: Well Developed, Well Nourished, No Apparent Distress and Comfortable
HEENT: Normocephalic, Atraumatic and Moist Mucous Membranes
Respiratory: Clear to Auscultation; Negative Wheezes, Rales or Rhonchi
Cardiac: S1/S2 and Murmur; Negative Rub or JVD
Breast: Deferred by me
GI: Soft, Nontender, Nondistended and Normal Bowel Sounds
Rectal: Deferred by Provider
Genito-urinary: Deferred by me
Musculoskeletal: No Clubbing, No Cyanosis and No Edema
Skin: Warm and Dry; Negative Rash, Ulcers or Lesions
Neuro: Awake, Alert, Oriented and AO x 3
Psych: Calm
[2024-05-05] MEDS: ASPIR LOW (ENTERIC COATED) 81 MG PO (07:46)
[2024-05-05] MEDS: NORVASC 5 MG PO (07:46)
[2024-05-05 08:00] VITALS: BP 119/66; BP 122/63; BP 128/64; PULSE 62; PULSE 68; PULSE 71
[2024-05-05] MEDS: IMDUR (EXTENDED RELEASE) 30 MG PO (11:18)
[2024-05-05 11:30] VITALS: BP 119/66; BP 122/63; BP 128/64; PULSE 62; PULSE 68; PULSE 71
[2024-05-05 12:54] LABS: Troponin I 0.034 ng/ml
[2024-05-05 13:11] LABS: Folate 5.2 ng/ml (2.76-20); Vitamin B12 582 pg/ml (239-931)
--- NOTE | 2024-05-05 14:33 | CM ---
Patient seen at bedside, Patient plan is for discharge home with MOH[facility]UD; [facility] managed by Bridget. Per Liaison patient had agreed to care starting on 05/05/24 previously. CM reviewed options with patient and he agreed to try again with the start of
care being the next day. CM sent referral via all scripts. Patient expressed concerns about being anemic and awaiting feedback from physicians. CM will continue to follow for discharge planning needs.
Plan; home with MOHAMUD; [facility] managed by bridget
[2024-05-05 16:00] VITALS: BP 118/66
--- NOTE | 2024-05-05 19:26 | W.DCSUMMARY ---
Discharge Summary
Discharge Data
Date of Admission: 05/01/24
Date of Discharge: 05/05/24
-
Pending Results: No
Hospital Course
The patient is a 64-year-old male who presented to the emergency department for evaluation of hypertension and chest discomfort. He has a past medical history of congenital bicuspid aortic valve with aortic stenosis s/p TAVR on 04/16/2024,
hypertension, hyperlipidemia, prostate cancer s/p prostatectomy, type B aortic dissection s/p left carotid subclavian transposition and thoracic duct ligation on 04/15/2024, and abdominal dissection stent on 04/16/2024. Prior to his presentation to
the emergency department he had been admitted to [facility] at [place] for the previously mentioned procedures and was discharged on 04/23/2024 after reportedly an uneventful postoperative course. He returned the next day after his discharge
to the emergency room and was admitted for observation after he had chest pain and abdominal pain and a abdominal CT showed possible reentry tear in the abdominal aortic dissection flap. Cardiology was consulted at [place] while the patient was
hospitalized and by their assessment they believe the patient's pain was not likely cardiac in origin. He had a follow-up appointment arranged with [place] cardiology prior to his discharge. Patient mentions numerous stressors in his life
including his immense work ethic, separation from his , and that he worries about his daughter. He was observed while he was there and seen by cardiology and was found to have negative troponins. He was ultimately discharged on carvedilol 25
mg p.o. twice daily for blood pressure control and he reported compliance. He stated that over the past 48 hours prior to his presentation his blood pressure had been high. When he measured it at home he stated that it was elevated up to 220
systolic. This high blood pressure was associated with chest pain, back pain, and abdominal pain. By the time he reached the emergency department his symptoms improved. On evaluation in the emergency department he reported some mild chest pain
but denied any abdominal pain. He did not have any shortness of breath nor was he feeling dizzy. In the emergency department his blood pressure reached 172/60, respirations were 27, pulse remained lower than 100, and body temperature and oxygen
saturation were within normal limits. Patient's hematologic lab work was unremarkable and his chemistry was unremarkable as well. EKG was unremarkable. CT scan showed postsurgical changes without acute abnormalities. Patient was started on
nicardipine gtt. patient was admitted to [facility] for uncontrolled hypertension.
The patient was admitted to the ICU with nicardipine drip initiated with a goal systolic blood pressure for less than 120. Troponins were followed. Cardiology was consulted and they recommended that the blood pressure be maintained ideally less
than 120/80 given his recent dissection. They also recommended that the patient follow-up with [facility] vascular surgery given the extent of their care over the past month prior to his presentation. The patient kept having breakthrough
hypertension so cardiology added amlodipine 5 mg daily and hydralazine 20 mg IV as needed. 1 episode of chest pain occurred the following morning and IV Dilaudid was given. Further adjustments were made including increasing the patient's
amlodipine to 5 mg twice daily. Due to consistent breakthrough hypertension the patient's Coreg was adjusted to 37.5 mg in the morning and 25 mg in the evening. Over 4 days the patient's medications were fine-tuned and his orthostatic vital signs
were followed. The patient had the most success on Coreg morning dose 37.5 mg and evening dose 25 mg, amlodipine 5 mg twice daily, and Imdur 30 mg. Nitroglycerin 0.4 mg as needed was added for breakthrough chest pain. During this time the
patient's creatinine was followed closely. Further discussion with the patient uncovered possible PTSD secondary to medical issues and anxiety from those medical issues. Patient was struggling to fall asleep and Ativan was given for 1 evening to
help him with the sleep. The patient found that this helped him sleep a little bit better but did not allow him to sleep all through the night. The patient had a mild episode of chest pain on 05/04/24 in the evening while he was straining on the
toilet. Hemoglobin was stable but anemic throughout the whole visit. Rectal exam showed no signs of active bleed or anatomical abnormalities. Labs showed an increase in troponins that trended downwards. Cardiology believe the patient was
appropriate and medically stable for discharge and follow-up in the outpatient setting with his surgical garment fitter and primary care provider. Patient was instructed to call or return to the emergency department if he had any chest pain lasting greater
than 15 minutes. Patient is back at his baseline and believe that he is ready for discharge.
The patient has reached maximal benefit from this hospital admission and the patient is appropriate for discharge at the present time. There are no barriers that would impede the patient from being discharged from the hospital at the present time.
The patient should follow-up with their primary care provider within 1 week following discharge. Patient should follow-up with his surgical garment fitter within 1 week following discharge. Patient will be discharged on Coreg morning dose 37.5 mg and evening
dose 25 mg, amlodipine 5 mg twice daily, and Imdur 30 mg. It is advised that the patient avoids benzodiazepine such as Ativan for long-term anxiety control as long-term use increases the risk of poor outcomes and decompensation in the outpatient
setting.
Discharge Plan
-
Patient Disposition: Home (Routine Discharge)
Discharge Diagnosis/Procedures: Hypertensive crisis
Condition: Good
Diet: Low Sodium
Activity: No restrictions
Driving Restrictions: As prior to admission
Blood Work: Follow-up CMP and BMP with primary care provider
Activity Restrictions/Additional Instructions:
Call your surgical garment fitter or return to ER if you have any chest pain lasting more than 15min
Referrals:
Joey Gary MD [Active] - in one to two weeks
Gerry Lincoln MD [Family Provider] - in less than 1 week
Prescriptions:
New
carvedilol 25 mg Tablet
37.5 mg PO DAILY @ 0600 30 Days Qty: 45 0RF
carvedilol 25 mg Tablet
25 mg PO HS 30 Days Qty: 30 0RF
isosorbide mononitrate 30 mg Tablet Extended Release 24 Hr
30 mg PO DAILY@1200 30 Days Qty: 30 0RF
nitroglycerin 0.4 mg Tablet, Sublingual
0.4 mg sublingual [id number] PRN (Reason: chest pain) 30 Days Qty: 30 0RF
amlodipine 5 mg Tablet
5 mg PO BID 30 Days Qty: 60 0RF
ferrous sulfate 134 mg (27 mg iron) tablet
134 mg PO DAILY Qty: 30 0RF
Continued
atorvastatin 80 mg Tablet
80 mg PO HS
aspirin 81 mg Tablet,Delayed Release (Dr/Ec)
81 mg PO DAILY
Discontinued
carvedilol 25 mg Tablet
25 mg PO BID
oxycodone 5 MG tablet
5 mg PO DAILYPRN PRN (Reason: moderate-severe pain)
Discharge Orders:
Discharge Patient (As Directed); Ordered 05/05/24
Ordered By: Jeannine Sy
Discharge Date and Time
Discharge Date/Time: 05/05/24 17:11
Print Language: NEPALI
== END 2024-05-05 17:11 | disposition home health service (06) | DRG 304 ==
LOC: 3 WEST ACU 00:37
PROVIDERS: Nurse Practitioner Family; Registered Nurse; ADMITTING PHYSICIAN Internal Medicine; ATTENDING PHYSICIAN Internal Medicine; CONSULT PHYSICIAN Internal Medicine Cardiovascular Disease; CONSULT PHYSICIAN Internal Medicine Critical Care Medicine; CONSULT PHYSICIAN Student in an Organized Health Care Education/Training Program; EMERGENCY PHYSICIAN Emergency Medicine; FAMILY PHYSICIAN Family Medicine; REFERRING PHYSICIAN Internal Medicine Cardiovascular Disease
DX: I16.0 Hypertensive urgency (principal); I71.02 Dissection of abdominal aorta; J98.11 Atelectasis; E87.1 Hypo-osmolality and hyponatremia; N17.9 Acute kidney failure, unspecified; K86.1 Other chronic pancreatitis; J90 Pleural effusion, not elsewhere classified; F17.200 Nicotine dependence, unspecified, uncomplicated; Q23.81 Bicuspid aortic valve; E78.2 Mixed hyperlipidemia; G47.33 Obstructive sleep apnea (adult) (pediatric); K59.09 Other constipation; F41.9 Anxiety disorder, unspecified; D50.0 Iron deficiency anemia secondary to blood loss (chronic); I35.2 Nonrheumatic aortic (valve) stenosis with insufficiency; I72.3 Aneurysm of iliac artery; I95.81 Postprocedural hypotension; Z79.82 Long term (current) use of aspirin; Z79.899 Other long term (current) drug therapy; Z80.1 Family history of malignant neoplasm of trachea, bronchus and lung; Z82.49 Family history of ischemic heart disease and other diseases of the circulatory system; Z90.79 Acquired absence of other genital organ(s); Z95.2 Presence of prosthetic heart valve; Z95.5 Presence of coronary angioplasty implant and graft; Z95.820 Peripheral vascular angioplasty status with implants and grafts; Z60.2 Problems related to living alone
CPT/HCPCS: 71275; 74174; 80048; 80053; 81003; 81015; 82607; 82728; 82746; 83036; 83540; 83550; 83735; 84100; 84244; 84484; 85025; 85027; 85610; 85730; 86850; 86900; 86901; 87045; 87046; 87077; 87324; 87427; 87449; 93005; 93306; 96365; 96366; 97162; 97166; 99285; 99406; Q9967

== ENCOUNTER → 2024-05-19 13:08 | Outpatient (REF) | payer BC, SELFPAY | LOC: RAD 13:08 | PROVIDERS: FAMILY PHYSICIAN Family Medicine; OTHER PHYSICIAN Internal Medicine Cardiovascular Disease; OTHER PHYSICIAN Nurse Practitioner Acute Care | DX: I71.00 Dissection of unspecified site of aorta (principal) | CPT/HCPCS: 71275; 74174; Q9967 ==

== ENCOUNTER 2024-08-04 15:39 | Emergency (ER) | payer BC, SELFPAY ==
[2024-08-04 15:43] VITALS: BP 160/69
[2024-08-04 16:23] LABS: % Basophils 0.3 % (0-2); % Eosinophils 0.9 % (0-6); % Immature Granulocytes 0.5 % (0-0.5); % Monocytes 10.6 % (1.7-9.3); % Neutrophils 55.7 % (42.2-75.2); Absolute Eosinophils 0.1 10^3/uL (0-0.7); Absolute Lymphocytes 2.1 10^3/uL (1.2-3.4); Absolute Monocytes 0.7 10^3/uL (0.1-0.6); Absolute Neutrophils 3.6 10^3/uL (1.4-6.5); Hematocrit 33.4 % (39.0-52.0); Hemoglobin 10.7 g/dL (13.0-18.0); Mean Corpuscular Volume 87.4 fL (80.0-94.0); Mean Platelet Volume 9.3 fL (7.4-10.4); Nucleated Red Blood Cells % 0 % (-); Platelet Count 185 10^3/uL (130-400); Red Blood Cell Count 3.82 10^6/uL (4.70-6.10); Red Cell Dist. Width 15.7 % (11.5-14.5); White Blood Cell Count 6.4 10^3/uL (4.8-10.8)
[2024-08-04 16:26] LABS: Urine Albumin 1+ (Neg - Trace); Urine Bilirubin Negative (Negative); Urine Character Clear (Clear); Urine Color Yellow; Urine Glucose Negative (Negative); Urine Ketone Negative (Negative); Urine Leukocyte Negative (Negative); Urine Nitrite Negative (Negative); Urine Occult Blood 3+ (Negative); Urine Specific Gravity 1.025 (<1.030); Urine Urobilinogen Negative (Neg - 1+)
[2024-08-04 16:36] LABS: ALT (SGPT) 19 U/L (0-50); AST (SGOT) 16 U/L (17-59); Albumin 3.8 g/dl (3.5-5.0); Alkaline Phosphatase 59 U/L (38-126); Blood Urea Nitrogen 22 mg/dl (9-20); Calcium 9.3 mg/dl (8.4-10.2); Carbon Dioxide 27 mmol/L (22-30); Chloride 108 mmol/L (98-107); Glucose 104 mg/dl (70-99); Potassium 4.5 mmol/L (3.5-5.1); Sodium 141 mmol/L (135-145); Total Bilirubin 0.5 mg/dl (0.2-1.3); Total Protein 6.9 g/dl (6.3-8.2); Urine Mucus Many; Urine Squamous Cell 0-2 /LPF (Few); eGFR > 60.00
[2024-08-04 16:37] LABS: Urine Bacteria Moderate (Negative); Urine White Cell 0-2 /HPF (0-5)
[2024-08-04 16:48] LABS: NT-proBNP 398 pg/ml; Troponin I 0.012 ng/ml
--- NOTE | 2024-08-04 18:31 | ED.GENMED ---
History of Present Illness
General
Chief Complaint: Breathing Problem
Source: patient, records, physician, previous radiology exam and previous hospital records
Exam Limitations: none
Time Seen by Provider: 08/04/24 17:54
Nursing documentation reviewed up to this point in time: agreed with
History of Present Illness
History of Present Illness:
64-year-old male history of aortic stenosis thoracic aortic surgery followed at [place], locally by Dr. Paniagua he takes amlodipine, Coreg, aspirin, been worked up for aortic valve repair about a week ago had a JOSE, scheduled for follow-up visit
about 3 weeks, he is having increasing shortness of breath, with exertion just up 3-4 steps, very mild symptoms at rest, no chest pain no fevers no leg edema he is using some nitroglycerin with some relief no dark or bloody stools no fever
Past History
Past History
ED Past Medical History: CAD, Cancer (Prostate cancer), Valvular disease, Other (Sigmoid diverticulitis, sigmoid colon resection January 2019), Other (Bicuspid aortic valve) and Other (Obstructive sleep apnea, pancreatitis, DJD)
ED Past Surgical History: Bowel resection (Sigmoid colon resection January 2019), Cardiac (cadiac cath 06/19), Cholecystectomy and Other (Prostatectomy)
Social History
Tobacco: Smoker
Alcohol: Occasional
Drug: None
Personal:
Living: with family
Employment: Employed
Family History
Family History: Early CAD
Review of Systems
Review of Systems
All Other Systems: Not applicable
Constitutional: Denies fever or fatigue
EENT: Reports no symptoms
Respiratory: Reports trouble breathing; Denies cough
Cardiac: Denies chest pain, diaphoresis or palpitations
ABD/GI: Reports no symptoms
: Reports no symptoms
Phy Exam
Physical Exam
Physical Exam:
Physical Exam
General: Pleasant nontoxic male
Neck: No JVD
Heart: Regular
Lungs: No crackles
Abdomen: Nontender
Neuro: alert and oriented. no focal neurological deficits
Skin: no rash
Psychiatric: well kept. interactive and cooperative
Extremities: Trace edema
Scores
Heart Failure Risk
Heart Failure Risk Score: Not Applicable
Course
Orders/Labs/Results
Orders:
Orders
08/04/24 15:42
Electrocardiogram (*1) Urgent
Reason for Study: Fatigue / Weakness
08/04/24 15:43
EKG- Treatment ONCE
08/04/24 16:09
BNP [NT-proBNP] Urgent
CMP [Comprehensive Metabolic Panel] Urgent
Complete Blood Count/With Diff Urgent
Troponin I Urgent
Urinalysis Reflex To Culture Urgent
Date Specimen was Collected: 08/04/24
Time Specimen was Collected: 15:43
Urine Microscopic Reflex Cult Urgent
Urine Culture Urgent
REESE Source: U
Specimen Description:
Date Specimen was Collected: 08/04/24
Time Specimen was Collected: 15:43
08/04/24 17:53
CR Chest - 2 Views Urgent
Comment:
Reason For Exam: sib
Abnormal Lab Results
08/04/24
16:09
RBC 3.82 L 10^6/uL
(4.70-6.10)
Hgb 10.7 L g/dL
(13.0-18.0)
Hct 33.4 L %
(39.0-52.0)
MCHC 32.0 L g/dL
(33.0-37.0)
RDW 15.7 H %
(11.5-14.5)
Absolute Monos (auto) 0.7 H 10^3/uL
(0.1-0.6)
Monocytes % 10.6 H %
(1.7-9.3)
Chloride 108 H mmol/L
(98-107)
BUN 22 H mg/dl
(9-20)
Glucose 104 H mg/dl
(70-99)
AST 16 L U/L
(17-59)
Ur Occult Blood Reflex 3+ A
(Negative)
Urine RBC 3-6 A /HPF
(0-2)
Urine Bacteria (Reflex) Moderate A
(Negative)
Urine Albumin (Reflex) 1+ A
(Neg - Trace)
08/04/24 16:09
08/04/24 16:09
Vital Signs
Initial and Last Documented VS:
Initial Vital Signs
Temp Pulse Resp BP Pulse Ox
97.7 F 67 18 160/69 96
08/04/24 15:43 08/04/24 15:43 08/04/24 15:43 08/04/24 15:43 08/04/24 15:43
Last Documented Vital Signs
Temp Pulse Resp BP Pulse Ox
97.7 F 76 20 143/72 96
08/04/24 15:43 08/04/24 18:55 08/04/24 18:55 08/04/24 18:55 08/04/24 18:55
MDM/Problems Addressed
Differential Diagnosis Includes:
Symptomatic heart failure hypertension pneumonia doubt PE
MDM/Problems Addressed:
Acute on chronic dyspnea
Chronic conditions affecting care: Other (Aortic stenosis)
Acute Exacerbation and/or Progression of Chronic Illness: Other (Aortic stenosis)
*Radiology
Radiology exam reviewed: radiology read reviewed
*Pulse Oximetry
Patient hypoxic: no
*EKG
Interpreted by ED Provider?: Yes
Interpretation: normal
Comparison EKG: no comparison EKG present
Heart Rate: 78
Rate: normal
Rhythm: sinus
Ischemia: non-specific ST changes
*Recovery Assistant Interpretation
Rate: normal
Interpretation: normal
Heart Rate: 78
Rhythm: sinus
*Critical Care Note
Total Time (30-74mins, 75-104mins- exclusive of procedures): Not Applicable
Update Note
Update Note:
8 PM, patient resting comfortably, reviewed labs and x-rays with him and his significant other, previously I did review his case with his outpatient short haul driver, does have a very complicated past history plan outpatient plan was [facility]
surgery which is in process patient is anxious to go home which think is reasonable is going to call the surgeon tomorrow to try to get his appointment moved up
ED Attending Note
-
Portions of this chart may have been created with voice recognition software.� Occasional wrong word or��sound alike� substitutions may have occurred due to the inherent limitations of voice recognition software.
Discharge Plan
Departure
Patient Disposition: Home (Routine Discharge)
Date of Disposition: 08/04/24
Time of Disposition: 19:57
Patient with high blood pressure during this ER visit?: Yes
Condition: Good
Discharge Problem:
Aortic stenosis
Instructions: Shortness of Breath (Dyspnea) (DC)
Prescriptions:
No Action
atorvastatin 80 mg Tablet
80 mg PO HS
aspirin 81 mg Tablet,Delayed Release (Dr/Ec)
81 mg PO DAILY
carvedilol 25 mg Tablet
37.5 mg PO DAILY @ 0600 30 Days Qty: 45 0RF
carvedilol 25 mg Tablet
25 mg PO HS 30 Days Qty: 30 0RF
isosorbide mononitrate 30 mg Tablet Extended Release 24 Hr
30 mg PO DAILY@1200 30 Days Qty: 30 0RF
nitroglycerin 0.4 mg Tablet, Sublingual
0.4 mg sublingual [id number] PRN (Reason: chest pain) 30 Days Qty: 30 0RF
amlodipine 5 mg Tablet
5 mg PO BID 30 Days Qty: 60 0RF
ferrous sulfate 134 mg (27 mg iron) tablet
134 mg PO DAILY Qty: 30 0RF
Referrals:
Gerry Lincoln MD [Family Provider, [facility]]
Activity Restrictions/Additional Instructions:
Call your surgeon at [place] tomorrow to discuss your symptoms
Return to the ER here at [place] if your symptoms worsen
Rest, until you are seen by your surgeon and have your surgery
Interventions
Interventions:
*Risk Screen - Suicide Last Done: 08/04/24 15:43
*General Assessment Last Done: 08/04/24 15:43
*Neglect/Abuse Screening Last Done: 08/04/24 15:43
*ED COVID-19 Vaccine History Last Done: 08/04/24 15:43
ED- Cardiac Assessment Last Done: 08/04/24 17:56
ED- Pulmonary Assessment Last Done: 08/04/24 17:56
Discharge Date and Time
Print Language: COLOMBIAN
[2024-08-04 18:55] VITALS: BP 143/72
[2024-08-04 20:05] VITALS: BP 140/72
== END 2024-08-04 20:06 | disposition home or self-care (01) ==
LOC: EMR 15:39
PROVIDERS: Emergency Medicine; EMERGENCY PHYSICIAN Emergency Medicine; FAMILY PHYSICIAN Family Medicine; REFERRING PHYSICIAN Internal Medicine Cardiovascular Disease
DX: I35.0 Nonrheumatic aortic (valve) stenosis (principal); I25.10 Atherosclerotic heart disease of native coronary artery without angina pectoris; G47.33 Obstructive sleep apnea (adult) (pediatric); F17.200 Nicotine dependence, unspecified, uncomplicated; Z85.46 Personal history of malignant neoplasm of prostate; Z90.79 Acquired absence of other genital organ(s)
CPT/HCPCS: 99285; 71046; 80053; 81003; 81015; 83880; 84484; 85025; 87086; 93005